=== PATIENT | male | born 1950 | race African-American/Black ===

== ENCOUNTER 2017-01-17 15:04 | Emergency (ER) | payer MEDICAID ==
[~2017-01-17] VITALS: Ht 188 cm; Wt 101.6 kg
[2017-01-17] MEDS ORDERED: POTASSIUM99 M3 PO (15:27)
[2017-01-17] MEDS ORDERED: FUROSEMIDE20 M1 ORAL (15:27)
[2017-01-17 15:35] VITALS: BP 189/90
--- NOTE | 2017-01-17 16:08 | Emergency Room Report ---
History of Present Illness General Chief Complaint: Abdominal Pain Source: Patient, Medical Record Present Illness HPI Patient is a 66-year-old male who presented after increased abdominal pain and vomiting. The patient reported having some episodes difficulty breathing. He reports having a prior history of renal disease as well as diabetes. 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 Allergies: Coded Allergies: No Known Allergies (Unverified , 01/17/17) Patient History Reviewed Nursing Documentation: PMH: Agreed, PSxH: Agreed Nursing Documentation-PMH Past Medical History: No History, Except For Hx Hypertension: Yes Hx Diabetes: Yes Review of Systems All Other Systems: negative except mentioned in HPI Physical Exam Vital Signs Date Time Temp Pulse Resp B/P Pulse Ox O2 Delivery O2 Flow Rate FiO2 01/17/17 15:23 98.2 97 16 189/90 96 Room Air Sp02 EP Interpretation: reviewed, normal General Appearance: thin, other - temporal wasting, Chronically Ill Head: atraumatic Eyes: bilateral eye conjunctivae pale ENT: normal pharynx Neck: normal inspection, full range of motion, supple Respiratory: crackles, other - decreased breath sounds left side Cardiovascular #1: regular rate, rhythm, edema Gastrointestinal: normal inspection, normal bowel sounds, non tender Genitourinary: no CVA tenderness Musculoskeletal: normal inspection, back normal Neurologic: normal inspection, alert, oriented x3, responsive, well head pumper III-XII nml as tested Psychiatric: normal inspection, judgement/insight normal, mood/affect normal Skin: normal inspection, normal color, no rash Medical Decision Making Diagnostic Impression: Primary Impression: Abdominal pain Additional Impressions: Anemia Renal insufficiency Fluid overload ER Course Patient presented for vomiting. Differential diagnoses included ischemic bowel , appendicitis, perforated viscus, abdominal aortic aneurysm, inferior myocardial infarction, viral gastroenteritis. Because of complexity of patient' s case laboratory testing and imaging studies were ordered. The patient was noted to have some evidence of renal disease. Patient had prior history patient is not currently on dialysis. The BUN and creatinine appears to be elevated. The patient was noted to be markedly anemic with hemoglobin approximately 8.The patient noted have marked elevation of his BUN/ creatinine without evidence hyperkalemia. A chest x-ray showed enlarged heart with vascular congestion consistent with renal disease. The patient was discussed with Dr. Marty Aguilera for transfer to [facility] for further workup of patient's renal insufficiency and possible dialysis access placement Labs Test 01/17/17 16:00 01/17/17 17:00 White Blood Count 8.8 K/UL (4.8-10.8) Red Blood Count 3.99 M/UL (4.70-6.10) Hemoglobin 7.9 G/DL (14.2-18.0) Hematocrit 23.8 % (42.0-52.0) Mean Corpuscular Volume 60 FL (80-99) Mean Corpuscular Hemoglobin 19.7 PG (27.0-31.0) Mean Corpuscular Hemoglobin Concent 33.1 G/DL (32.0-36.0) Red Cell Distribution Width 18.4 % (11.6-14.8) Platelet Count 216 K/UL (150-450) Mean Platelet Volume 5.6 FL (6.5-10.1) Neutrophils (%) (Auto) % (45.0-75.0) Lymphocytes (%) (Auto) % (20.0-45.0) Monocytes (%) (Auto) % (1.0-10.0) Eosinophils (%) (Auto) % (0.0-3.0) Basophils (%) (Auto) % (0.0-2.0) Differential Total Cells Counted 100 Neutrophils % (Manual) 78 % (45-75) Lymphocytes % (Manual) 15 % (20-45) Monocytes % (Manual) 4 % (1-10) Eosinophils % (Manual) 2 % (0-3) Basophils % (Manual) 0 % (0-2) Band Neutrophils 1 % (0-8) Platelet Estimate Adequate Platelet Morphology Normal Hypochromasia 2+ Anisocytosis 2+ Microcytosis 2+ Target Cells 2+ Sodium Level 136 mEQ/L (135-145) Potassium Level 4.5 mEQ/L (3.4-4.9) Chloride Level 98 mEQ/L (98-107) Carbon Dioxide Level 18 mEQ/L (20-30) Anion Gap 20 (5-15) Blood Urea Nitrogen 42 mg/dL (7-23) Creatinine 5.4 mg/dL (0.7-1.2) Estimat Glomerular Filtration Rate 10.7 mL/min (>60) Glucose Level 110 mg/dL (74-106) Calcium Level 9.0 mg/dL (8.6-10.2) Total Bilirubin 0.8 mg/dL (0.0-1.2) Aspartate Amino Transf (AST/SGOT) 13 U/L (5-40) Alanine Aminotransferase (ALT/SGPT) 7 U/L (3-41) Alkaline Phosphatase 107 U/L (40-129) Troponin I < 0.30 ng/mL (<=0.30) Total Protein 7.7 g/dL (6.6-8.7) Albumin 3.8 g/dL (3.5-5.2) Globulin 3.9 g/dL Albumin/Globulin Ratio 0.9 (1.0-2.7) Lipase 63 U/L (< 60) Urine Color Pale yellow Urine Appearance Clear Urine pH 6 (4.5-8.0) Urine Specific [place] 1.010 (1.005-1.035) Urine Protein 4+ (NEGATIVE) Urine Glucose (UA) 1+ (NEGATIVE) Urine Ketones Negative (NEGATIVE) Urine Occult Blood 2+ (NEGATIVE) Urine Nitrite Negative (NEGATIVE) Urine Bilirubin Negative (NEGATIVE) Urine Urobilinogen Normal MG/DL (0.0-1.0) Urine Leukocyte Esterase Negative (NEGATIVE) Urine RBC 2-4 /HPF (0 - 0) Urine WBC 0-2 /HPF (0 - 0) Urine Squamous Epithelial Cells None /LPF (NONE/OCC) Urine Bacteria Few /HPF (NONE) EKG Diagnostic Results Rate: normal Rhythm: NSR ST Segments: other - lateral and inf t wave inversion Chest X-Ray Diagnostic Results EP Interpretation: Yes Findings: no consolidation, no pneumothorax, no acute cardiopulmonary disease Number of Views: 1 Last Vital Signs Date Time Temp Pulse Resp B/P Pulse Ox O2 Delivery O2 Flow Rate FiO2 01/17/17 15:35 16 189/90 96 Room Air 01/17/17 15:23 98.2 97 Status: unchanged Disposition: XFER SHT-TRM HOSP Condition: Serious Israel Pickens January 17, 2017 16:08
[2017-01-17 16:34] LABS: MEAN CORPUSCULAR HEMOGLOBIN 19.7 PG (27.0-31.0); MEAN CORPUSCULAR HGB CONC 33.1 G/DL (32.0-36.0); MEAN CORPUSCULAR VOLUME 60 FL (80-99); MEAN PLATELET VOLUME 5.6 FL (6.5-10.1); PLATELET COUNT 216 K/UL (150-450); RED BLOOD COUNT 3.99 M/UL (4.70-6.10); RED CELL DISTRIBUTION WIDTH 18.4 % (11.6-14.8); WHITE BLOOD COUNT 8.8 K/UL (4.8-10.8)
[2017-01-17 16:44] LABS: ALBUMIN/GLOBULIN RATIO 0.9 (1.0-2.7); CREATININE 5.4 mg/dL (0.7-1.2); GLOMERULAR FILTRATION RATE 10.7 mL/min (>60); POTASSIUM 4.5 mEQ/L (3.4-4.9); TOTAL PROTEIN 7.7 g/dL (6.6-8.7)
[2017-01-17 16:57] LABS: TROPONIN I < 0.30 ng/mL (<=0.30)
[2017-01-17 17:12] LABS: ANISOCYTOSIS 2+; BAND NEUTROPHILS % (MANUAL) 1 % (0-8); BASOPHILS % (MANUAL) 0 % (0-2); EOSINOPHILS % (MANUAL) 2 % (0-3); HYPOCHROMASIA 2+; LYMPHOCYTES % (MANUAL) 15 % (20-45); MICROCYTES 2+; NEUTROPHILS % (MANUAL) 78 % (45-75); PLATELET ESTIMATE ADEQUATE; PLATELET MORPHOLOGY NORMAL; TARGET CELLS 2+; TOTAL CELLS COUNTED 100
[2017-01-17 17:44] LABS: APPEARANCE,URINE CLEAR; KETONES,URINE NEGATIVE (NEGATIVE); LEUKOCYTE ESTERASE ,URINE NEGATIVE (NEGATIVE); NITRITE,URINE NEGATIVE (NEGATIVE); PH,URINE 6 (4.5-8.0); PROTEIN,URINE 4+ (NEGATIVE); UROBILINOGEN,URINE NORMAL MG/DL (0.0-1.0)
[2017-01-17 17:55] LABS: BACTERIA,URINE FEW /HPF; WBC,URINE 0-2 /HPF (0 - 0)
[2017-01-17 19:24] VITALS: BP 146/89
[2017-01-17] MEDS ORDERED: BENAZEPRIL HCL10 MG ORAL (19:43)
[2017-01-17] MEDS ORDERED: FOLIC ACID1 MG ORAL (19:44)
[2017-01-17] MEDS ORDERED: CARVEDILOL12.5 MG ORAL (19:45)
[2017-01-17] MEDS ORDERED: FUROSEMIDE80 M1 ORAL (19:46)
[2017-01-17] MEDS ORDERED: ISOSORBIDE MON120 M1 PO (19:48)
[2017-01-17] MEDS ORDERED: BICITRA30 ML PO (19:49)
[2017-01-17] MEDS ORDERED: FERROUS GLUCON324 M1 PO (19:50)
[2017-01-17] MEDS ORDERED: HYDRALAZINE HC100 MG ORAL (19:51)
[2017-01-17] MEDS ORDERED: ADALAT20 MG ORAL (19:52)
[2017-01-17] MEDS ORDERED: PANTOPRAZOLE SO40 MG ORAL (19:53)
[2017-01-17] MEDS ORDERED: ASPIRIN EC81 MG ORAL (19:54)
[2017-01-17] MEDS ORDERED: GLIPIZIDE10 MG PO (19:55)
[2017-01-17] MEDS ORDERED: ATORVASTATIN CA40 MG ORAL (19:56)
[2017-01-17] MEDS ORDERED: MULTIVITAMINS1 EAC2 ORAL (19:59)
[2017-01-17 21:00] VITALS: BP 151/82
[2017-01-17 21:10] VITALS: BP 142/79
--- NOTE | 2017-01-18 10:37 | Diagnostic Imaging Report ---
Indication: Dyspnea Comparison: None A single view chest radiograph was obtained. Findings: There is enlargement of the cardiac silhouette with pulmonary vascular redistribution and prominence, hazy vessel margins and the suggestion of interstitial edema consistent with CHF. Bones are unremarkable. Impression: Congestive heart failure suspected.
== END 2017-01-17 21:10 | disposition short-term general hospital (02) ==
LOC: EMR 17:02
DX: R10.9 Unspecified abdominal pain (principal); D64.9 Anemia, unspecified; N28.9 Disorder of kidney and ureter, unspecified; E87.70 Fluid overload, unspecified; I10 Essential (primary) hypertension; E11.9 Type 2 diabetes mellitus without complications; R11.10 Vomiting, unspecified
CPT/HCPCS: 36415; 71010; 80053; 81003; 83690; 84484; 85007; 85025; 86850; 86900; 86901; 93005; 96374; 99285; J2405

== ENCOUNTER 2020-02-24 17:37 | Inpatient (IN) | payer MEDICARE, MEDICAID ==
[~2020-02-24] VITALS: Ht 182.9 cm; Wt 89.4 kg
[~2020-02-24 17:37] MED LIST: ADALAT20 MG ORAL; ASPIRIN EC81 MG ORAL; ATORVASTATIN CA40 MG ORAL; BENAZEPRIL HCL10 MG ORAL; BICITRA30 ML PO; CARVEDILOL12.5 MG ORAL; FERROUS GLUCON324 M1 PO; FOLIC ACID1 MG ORAL; FUROSEMIDE20 M1 ORAL; FUROSEMIDE80 M1 ORAL; GLIPIZIDE10 MG PO; HYDRALAZINE HC100 MG ORAL; ISOSORBIDE MON120 M1 PO; MULTIVITAMINS1 EAC2 ORAL; PANTOPRAZOLE SO40 MG ORAL; POTASSIUM99 M3 PO
[2020-02-24 17:54] VITALS: BP 201/90
[2020-02-24] MEDS ORDERED: PROSCAR5 MG ORAL (17:56)
[2020-02-24] MEDS ORDERED: FLOMAX0.4 MG ORAL (17:56)
--- NOTE | 2020-02-24 18:04 | Emergency Room Report ---
History of Present Illness General Chief Complaint: Abdominal Pain Source: Patient Present Illness HPI Patient presents with complaints of increased nausea vomiting Reports that he has missed several episodes of dialysis Patient also reports multiple recent hospitalizations Denies any chest pain denies any history patient also feels that he is more distended in the abdominal region than usual Patient has dialysis on the left AV shunt Allergies: Coded Allergies: No Known Allergies (Unverified , 01/17/17) COVID-19 Screening Contact w/high risk pt: No Recent Travel to affected area: No Experienced COVID-19 symptoms?: No COVID-19 Testing performed PROCESS CONTROL MANAGER: No Patient History Past Medical History: see triage record Reviewed Nursing Documentation: PMH: Agreed; PSxH: Agreed Nursing Documentation-PMH Past Medical History: No History, Except For Hx Hypertension: Yes Hx Diabetes: Yes Hx Dialysis: Yes - Tues/Thurs/Sat Review of Systems All Other Systems: negative except mentioned in HPI Physical Exam Vital Signs Date Time Temp Pulse Resp B/P (MAP) Pulse Ox O2 Delivery O2 Flow Rate FiO2 02/24/20 17:46 97.5 78 20 193/82 (119) 100 Room Air Sp02 EP Interpretation: reviewed, normal General Appearance: no apparent distress Head: normocephalic, atraumatic Eyes: bilateral eye PERRL, bilateral eye EOMI ENT: hearing grossly normal, EOM grossly intact Neck: supple Respiratory: no respiratory distress, no retraction, no accessory muscle use, crackles - Both lower lobes Cardiovascular #1: regular rate, rhythm Gastrointestinal: non tender - However appears mildly distended Musculoskeletal: normal inspection, other - AV shunt left upper arm Neurologic: alert, oriented x3 Psychiatric: normal inspection Skin: no rash Lymphatic: no adenopathy Medical Decision Making Diagnostic Impression: Primary Impression: Renal failure Additional Impression: Anemia ER Course Patient is a fairly complex patient with multiple differential to consideration including but not limited to cardiac cardiopulmonary and vascular emergencies patient has also missed several dialysis sessions and there is concern for Renal problems including abnormal electrolytes Patient's hemoglobin comes back low at 6.0 he does have renal disease Potassium is normal however getting elevated kidney function shows renal failure Patient's lipase is also elevated and patient admitted for further care Labs Test 02/24/20 18:00 White Blood Count 7.9 K/UL (4.8-10.8) Red Blood Count 2.79 M/UL (4.70-6.10) Hemoglobin 6.0 G/DL (14.2-18.0) Hematocrit 18.5 % (42.0-52.0) Mean Corpuscular Volume 66 FL (80-99) Mean Corpuscular Hemoglobin 21.6 PG (27.0-31.0) Mean Corpuscular Hemoglobin Concent 32.5 G/DL (32.0-36.0) Red Cell Distribution Width 17.4 % (11.6-14.8) Platelet Count 108 K/UL (150-450) Mean Platelet Volume 6.0 FL (6.5-10.1) Neutrophils (%) (Auto) % (45.0-75.0) Lymphocytes (%) (Auto) % (20.0-45.0) Monocytes (%) (Auto) % (1.0-10.0) Eosinophils (%) (Auto) % (0.0-3.0) Basophils (%) (Auto) % (0.0-2.0) Prothrombin Time 12.3 SEC (9.30-11.50) Prothromb Time International Ratio 1.1 (0.9-1.1) Activated Partial Thromboplast Time 30 SEC (23-33) Sodium Level 137 MMOL/L (136-145) Potassium Level 5.0 MMOL/L (3.5-5.1) Chloride Level 101 MMOL/L (98-107) Carbon Dioxide Level 15 MMOL/L (21-32) Anion Gap 21 mmol/L (5-15) Blood Urea Nitrogen 135 mg/dL (7-18) Creatinine 19.5 MG/DL (0.55-1.30) Estimat Glomerular Filtration Rate 2.9 mL/min (>60) Glucose Level 105 MG/DL (74-106) Calcium Level 7.7 MG/DL (8.5-10.1) Total Bilirubin 0.7 MG/DL (0.2-1.0) Aspartate Amino Transf (AST/SGOT) 11 U/L (15-37) Alanine Aminotransferase (ALT/SGPT) 20 U/L (12-78) Alkaline Phosphatase 142 U/L (46-116) Troponin I 0.026 ng/mL (0.000-0.056) Total Protein 8.2 G/DL (6.4-8.2) Albumin 3.9 G/DL (3.4-5.0) Globulin 4.3 g/dL Albumin/Globulin Ratio 0.9 (1.0-2.7) Lipase 773 U/L (73-393) Rhythm Strip Diag. Results EP Interpretation: yes Rate: 77 Rhythm: NSR, no PVC's, no ectopy Chest X-Ray Diagnostic Results Chest X-Ray Diagnostic Results : Chest X-Ray Ordered: Yes # of Views/Limited/Complete: 1 View Indication: Chest Pain EP Interpretation: Yes Interpretation: no consolidation, no effusion, no pneumothorax Impression: No acute disease Electronically Signed by: Kaela Mary DO Last Vital Signs Date Time Temp Pulse Resp B/P (MAP) Pulse Ox O2 Delivery O2 Flow Rate FiO2 02/24/20 17:46 97.5 78 20 193/82 (119) 100 Room Air Status: improved Disposition: ADMITTED INPATIENT Condition: Serious Kaela Mary DO Feb 24, 2020 18:04
[2020-02-24 18:12] LABS: HEMATOCRIT 18.5 % (42.0-52.0); MEAN CORPUSCULAR VOLUME 66 FL (80-99); PLATELET COUNT 108 K/UL (150-450); RED BLOOD COUNT 2.79 M/UL (4.70-6.10); RED CELL DISTRIBUTION WIDTH 17.4 % (11.6-14.8); WHITE BLOOD COUNT 7.9 K/UL (4.8-10.8)
[2020-02-24 18:22] LABS: ANION GAP 21 mmol/L (5-15); BLOOD UREA NITROGEN 135 mg/dL (7-18); CALCIUM 7.7 MG/DL (8.5-10.1); CARBON DIOXIDE 15 MMOL/L (21-32); CHLORIDE 101 MMOL/L (98-107); CREATININE 19.5 MG/DL (0.55-1.30); SODIUM 137 MMOL/L (136-145)
[2020-02-24 18:23] LABS: INR 1.1 (0.9-1.1)
[2020-02-24 18:26] LABS: ALANINE AMINOTRANSFERASE 20 U/L (12-78); ALBUMIN 3.9 G/DL (3.4-5.0); ALBUMIN/GLOBULIN RATIO 0.9 (1.0-2.7); ALKALINE PHOSPHATASE 142 U/L (46-116); ASPARTATE AMINO TRANSFERASE 11 U/L (15-37); BILIRUBIN,TOTAL 0.7 MG/DL (0.2-1.0)
--- NOTE | 2020-02-24 19:14 | Diagnostic Imaging Report ---
EXAM: XR Chest, 1 View CLINICAL HISTORY: CP TECHNIQUE: Frontal view of the chest. COMPARISON: Chest x-ray from 01/17/2017 is unavailable for comparison as the image is not transmitting. FINDINGS: Lungs: Unremarkable. No consolidation. Pleural space: Unremarkable. No pneumothorax. Heart: Unremarkable. Borderline cardiomegaly. Mediastinum: Unremarkable. Bones/joints: Unremarkable. IMPRESSION: No acute cardiopulmonary disease.
[2020-02-24 19:45] VITALS: BP 195/76
[2020-02-24 20:15] VITALS: BP 175/70
[2020-02-24 21:00] VITALS: BP 168/66
[2020-02-24 22:45] VITALS: BP 179/79
[2020-02-25] MEDS ORDERED: Morphine Sulfate 4mg/ml Inj (IV USE ONLY) ONE (00:44)
[2020-02-25] MEDS ORDERED: Morphine Sulfate 4mg/ml Inj (IV USE ONLY) IVP ONE (00:45)
[2020-02-25 01:30] VITALS: BP 184/79
[2020-02-25] MEDS: NIFEdipine 10mg cap ORAL SCH ×4 (06:00→21:51)
[2020-02-25] MEDS: HydrALAZINE 50mg tab ORAL SCH ×4 (06:00→21:52)
[2020-02-25 06:30] LABS: HEMATOCRIT 19.7 % (42.0-52.0); MEAN CORPUSCULAR VOLUME 67 FL (80-99); PLATELET COUNT 100 K/UL (150-450); RED BLOOD COUNT 2.96 M/UL (4.70-6.10); RED CELL DISTRIBUTION WIDTH 18.7 % (11.6-14.8); WHITE BLOOD COUNT 7.4 K/UL (4.8-10.8)
[2020-02-25] MEDS: GlipiZIDE 5mg tab ORAL SCH ×2 (06:30→19:10)
[2020-02-25] MEDS: NovoLOG Insulin Flexpen SUBQ SCH ×4 (06:30→21:00)
[2020-02-25] MEDS: Sodium Citrate 30ml ORAL SCH ×2 (09:00→19:12)
[2020-02-25] MEDS: Heparin 5000 units/ml inj SUBQ SCH ×2 (09:00→21:00)
[2020-02-25] MEDS ORDERED: Furosemide 40mg tab ONE (09:09)
[2020-02-25] MEDS: Benazepril 10mg tab ORAL SCH (09:11)
[2020-02-25] MEDS: Furosemide 80mg tab ORAL SCH ×2 (09:12→21:00)
[2020-02-25] MEDS: Tamsulosin 0.4mg cap ORAL SCH (09:14)
[2020-02-25 09:26] VITALS: BP 186/77
[2020-02-25] MEDS: Imdur 30mg tab ORAL SCH (10:02)
[2020-02-25] MEDS: Carvedilol 12.5mg tab ORAL SCH ×2 (10:02→21:00)
[2020-02-25 10:28] VITALS: BP 177/74
[2020-02-25 11:42] VITALS: BP 167/68
--- NOTE | 2020-02-25 12:15 | History and Physical Report ---
DATE OF ADMISSION: 02/24/2020 CHIEF COMPLAINT: Anemia and shortness of breath. HISTORY OF PRESENT ILLNESS: The patient is a 69-year-old male. He has a history of end-stage renal disease, hypertension, diabetes, and BPH, who presented with complaints of feeling weak, tired, and short of breath. He had not gone to dialysis for nearly 2 weeks. He also admits to having some blood in his stool and having an episode of hematemesis here in the ER. On evaluation here, his white count was 8, hemoglobin was 6. Sodium was 137. He had a BUN of 135 and creatinine of 20. He is now admitted for further evaluation and care. PAST MEDICAL HISTORY: As above. PAST SURGICAL HISTORY: Includes a left upper extremity AV fistula. CURRENT MEDICATIONS: Reconciled and reviewed. ALLERGIES: None. FAMILY HISTORY: None. SOCIAL HISTORY: Negative for tobacco, ethanol, or drugs. REVIEW OF SYSTEMS: GENERAL: No fever or chills. Positive malaise and weakness. HEENT: No headaches or visual changes. CARDIOPULMONARY: No chest pain. No shortness of breath. GASTROINTESTINAL: Positive hematemesis. Questionable bright red blood per rectum. GENITOURINARY: No urgency or frequency. MUSCULOSKELETAL: No joint pain or swelling. NEUROLOGICAL: No history of seizures. SKIN: No rash. LABORATORY DATA: White count was 8, hemoglobin 6, hematocrit 18, platelet count of 108,000. Coags are normal. BUN was 135, creatinine 20. Chest x-ray was clear. ASSESSMENT: This is a 69-year-old male with a history of end-stage renal disease, hypertension, and diabetes, admitted with complaints of azotemia secondary to missed dialysis. He also may have a possible GI bleed. He is hypertensive and diabetic. PLAN: 1. Transfuse packed red blood cells. 2. IV proton pump inhibitor. 3. GI consultation. 4. Renal consultation for hemodialysis. 5. The patient is currently guarded. Sahil Dixon M.D. DR: PAIGE JOB#: [id number] CC:
[2020-02-25 16:00] VITALS: BP 94/67
[2020-02-25 20:00] VITALS: BP 177/60
--- NOTE | 2020-02-25 20:46 | General Progress Note ---
Assessment/Plan Assessment/Plan: Assessment - Cirrhosis, ? etiology - Ascites - ESRD / HD - N/V, Diarrhea - small volume Hematemesis, BRBPR - Anemia Recommendations - RBC transfusion - IV Fe - Paracentesis - IV PPI - Cirrhosis serologic w/u - check AFP - Liver imaging - stool cultures / C Diff - eventual EGD / Colon Thank you Merna Serrano MD Subjective Allergies: Coded Allergies: No Known Allergies (Unverified , 01/17/17) Objective Last 24 Hour Vital Signs Date Time Temp Pulse Resp B/P (MAP) Pulse Ox O2 Delivery O2 Flow Rate FiO2 02/25/20 20:13 167/70 02/25/20 16:00 97.5 88 20 94/67 (76) 100 02/25/20 13:16 Room Air 02/25/20 12:10 98.3 81 21 167/68 99 Room Air 02/25/20 11:42 81 21 167/68 99 Room Air 02/25/20 10:28 70 21 177/74 99 Room Air 02/25/20 10:02 186/77 02/25/20 10:02 86 186/77 02/25/20 09:26 98.3 86 21 186/77 98 Room Air 02/25/20 09:11 184/79 02/25/20 08:38 184/79 02/25/20 08:37 90 184/79 02/25/20 01:30 98.3 90 16 184/79 100 Room Air 02/25/20 01:25 98.3 02/24/20 23:45 98.3 93 16 02/24/20 22:45 98.3 90 16 179/79 100 Room Air 02/24/20 22:45 98.3 90 16 02/24/20 21:10 98.3 77 16 02/24/20 21:00 98.1 79 18 168/66 100 Room Air Intake and Output 02/24/20 02/25/20 19:00 07:00 Intake Total 500 ml Balance 500 ml Intake Blood Product 500 ml # Bowel Movements 2 Laboratory Tests 02/25/20 06:00: White Blood Count 7.4, Red Blood Count 2.96L, Hemoglobin 7.0L, Hematocrit 19.7L , Mean Corpuscular Volume 67L, Mean Corpuscular Hemoglobin 23.6L, Mean Corpuscular Hemoglobin Concent 35.5, Red Cell Distribution Width 18.7H, Platelet Count 100L, Mean Platelet Volume 4.9L, Neutrophils (%) (Auto) , Lymphocytes (%) (Auto) , Monocytes (%) (Auto) , Eosinophils (%) (Auto) , Basophils (%) (Auto) , Differential Total Cells Counted 100, Neutrophils % ( Manual) 82H, Lymphocytes % (Manual) 13L, Monocytes % (Manual) 4, Eosinophils % ( Manual) 1, Basophils % (Manual) 0, Band Neutrophils 0, Platelet Estimate DecreasedL, Platelet Morphology Normal, Hypochromasia 1+, Anisocytosis 1+, Microcytosis 2+, Iron Level 58, Hepatitis B Surface Antigen [Pending] Height (Feet): 6 Height (Inches): 2.00 Weight (Pounds): 198 Merna Serrano MD Feb 25, 2020 20:46
[2020-02-25] MEDS ORDERED: Atorvastatin 20mg tab ORAL SCH (21:00)
[2020-02-25] MEDS: Epoetin Alfa-EPBX(ESRD on dialysis)3000 units/ml vial SUBQ SCH (21:00)
[2020-02-25] MEDS ORDERED: Heparin Sod 1000 units/ml 10ml IV PRN ×2 (21:15)
[2020-02-26] VITALS (7 sets, daily range): BP systolic 123–185; BP diastolic 61–84
--- NOTE | 2020-02-26 00:30 | Consultation ---
DATE OF CONSULTATION: 02/25/2020 NEPHROLOGY CONSULTATION CONSULTING PHYSICIAN: Kirby Pizarro MD REASON FOR CONSULTATION: Azotemia and end-stage renal disease. HISTORY OF PRESENT ILLNESS: The patient is a 69-year-old man who has been on dialysis for about 4 years and missed dialysis for about two weeks. He states he just does not feel good. There is some hematemesis and possible rectal bleeding. He is severely azotemic. There is a history of hypertension and diabetes. ALLERGIES: None known. SURGERIES: AV fistula in the left arm. HOME MEDICATIONS: On the chart includes aspirin, atorvastatin, benazepril, carvedilol, ferrous gluconate, Proscar, folic acid, furosemide, glipizide, hydralazine, isosorbide, multivitamins, nifedipine, Protonix, sodium citrate, and tamsulosin. It is unclear if these are accurate. SYSTEM REVIEW: HEAD, EYES, EARS, NOSE, AND THROAT: Vision and hearing is good. ENDOCRINE: The patient states he has diabetes, took insulin in the past. CARDIAC: Denies angina or [place], history of hypertension. GASTROINTESTINAL: See history of present illness. No abdominal pain. GENITOURINARY: History of BPH. No dysuria. NEUROLOGIC: No CVA or seizures. PHYSICAL EXAMINATION: GENERAL: The patient is lying in bed, somewhat sleepy, but responsive. VITAL SIGNS: Temperature 98.3, pulse 81, respiratory rate 21, blood pressure 167/68. HEAD, EYES, EARS, NOSE, AND THROAT: Sclerae are nonicteric. Ocular motions intact in all directions. Oral mucosa is moist. NECK: No adenopathy. LUNGS: Clear. HEART: Regular rhythm. No murmur. ABDOMEN: Soft without organomegaly. EXTREMITIES: No edema cyanosis or clubbing. There is an AV fistula in the left arm. NEUROLOGIC: He is alert and responsive. Cranial nerves are intact. He moves all extremities. he has uremic fetor to his breath. LABORATORY DATA: Pertinent labs show sodium 137, potassium 5, BUN 135, creatinine 19.5, troponin 0.026, white count 7.4, hemoglobin is 7. Stool occult blood positive. IMPRESSION: 1. End-stage renal disease. 2. Missed dialysis. 3. History of hep C 4. Anemia of chronic kidney disease. 5. Heme-positive stools. 6. Hematemesis and hematochezia. PLAN: The patient will get serial dialysis. We will place him on Epogen. Check his iron stores, watch closely in view of his comorbidities. Kirby Pizarro M.D. DR: Apryl JOB#: [id number] CC:
--- NOTE | 2020-02-26 02:30 | Consultation ---
DATE OF CONSULTATION: 02/25/2020 CHIEF COMPLAINT: I was asked to see patient by Dr. Sahil Dixon for evaluation of nausea, vomiting, and cirrhosis. HISTORY OF PRESENT ILLNESS: The patient is a 69-year-old man who is new to this hospital. He has end-stage renal disease on hemodialysis, although, he apparently missed his dialysis for several sessions. He also states that he has been diagnosed with cirrhosis about a month ago and he has had 2 to 3 paracentesis at outside Hospital. He also has had nausea and vomiting for about a day and the diarrhea for about four days. He states he has been retching several times with small amount of blood in the emesis. He has not had endoscopy or colonoscopy in the past. He denies pyrosis, but he does have some occasional small amount of blood in his stools. He is not on any medications for his cirrhosis nor does he know the cause of his cirrhosis. He does not drink alcohol. PAST MEDICAL HISTORY: History of end-stage renal disease on hemodialysis, cirrhosis, ascites, status post the left upper extremity AV fistula. ALLERGIES: None. FAMILY HISTORY: Noncontributory. SOCIAL HISTORY: The patient does not smoke or drink alcohol. He is single. He has 8 children. MEDICATIONS: Nifedipine, finasteride, Flomax. REVIEW OF SYSTEMS: Otherwise negative. PHYSICAL EXAMINATION: GENERAL: Elderly man seen in the emergency room. HEENT: Normocephalic and atraumatic. Sclerae anicteric. Oropharynx clear. NECK: Supple. CHEST: Clear to auscultation. CARDIOVASCULAR: Revealed a regular rate. ABDOMEN: Distended. There is a fluid wave suggestive of ascites. EXTREMITIES: Revealed no edema. LABORATORY DATA: Noted. ASSESSMENT: This patient presents with several gastrointestinal issues. The most important is advanced liver disease with ascites although the cause is not apparent to me or to the patient. The patient should have ascites evaluation for this. In addition, the his abdomen is large and there appears to be nausea, vomiting, diarrhea, typical viral gastroenteritis could be the etiology. However, I would check his stools for usual pathogens. He should be placed on proton pump inhibitor He should receive blood and iron infusions to help restore his volume of blood. He should undergo an eventual endoscopy and colonoscopy once all has been clarified. RECOMMENDATIONS: Per above discussion and per orders in the chart. Thank you for asking me to participate in the care of this patient. Merna Serrano M.D. DR: Rosa Elena JOB#: [id number] CC: ERIK
[2020-02-26] MEDS ORDERED: Heparin Sod 1000 units/ml 10ml IV PRN (06:00)
[2020-02-26] MEDS: NovoLOG Insulin Flexpen SUBQ SCH ×4 (06:23→21:00)
[2020-02-26] MEDS: GlipiZIDE 5mg tab ORAL SCH ×2 (06:23→16:30)
[2020-02-26] MEDS: HydrALAZINE 50mg tab ORAL SCH ×3 (06:23→22:22)
[2020-02-26] MEDS: NIFEdipine 10mg cap ORAL SCH ×3 (06:23→22:22)
[2020-02-26 07:18] LABS: HEMATOCRIT 21.3 % (42.0-52.0); HEMOGLOBIN 7.4 G/DL (14.2-18.0); MEAN CORPUSCULAR VOLUME 66 FL (80-99); PLATELET COUNT 89 K/UL (150-450); RED BLOOD COUNT 3.21 M/UL (4.70-6.10); RED CELL DISTRIBUTION WIDTH 18.1 % (11.6-14.8); WHITE BLOOD COUNT 5.1 K/UL (4.8-10.8)
[2020-02-26 07:51] LABS: % IRON SATURATION 30 % (15-50); IRON 58 ug/dL (50-175); TOTAL IRON BINDING CAPACITY 191 ug/dL (250-450)
[2020-02-26 08:17] LABS: ANION GAP 18 mmol/L (5-15); BLOOD UREA NITROGEN 95 mg/dL (7-18); CALCIUM 7.8 MG/DL (8.5-10.1); CARBON DIOXIDE 22 MMOL/L (21-32); CHLORIDE 105 MMOL/L (98-107); CREATININE 13.7 MG/DL (0.55-1.30); FERRITIN 1107 NG/ML (8-388); PHOSPHORUS 4.6 MG/DL (2.5-4.9); POTASSIUM 3.8 MMOL/L (3.5-5.1); SODIUM 145 MMOL/L (136-145)
--- NOTE | 2020-02-26 08:52 | General Progress Note ---
Assessment/Plan Problem List: (1) Anemia ICD Codes: D64.9 - Anemia, unspecified SNOMED: 345572911 (2) Renal failure ICD Codes: N19 - Unspecified kidney failure SNOMED: 50745688 (3) GIB (gastrointestinal bleeding) ICD Codes: K92.2 - Gastrointestinal hemorrhage, unspecified SNOMED: 21524920 (4) HTN (hypertension) ICD Codes: I10 - Essential (primary) hypertension SNOMED: 61005679 Status: stable Assessment/Plan: HD per renal titrate bp rx transfuse prn paracentesis thyroid replacement echo antiemetics Subjective ROS Limited/Unobtainable: No Constitutional: Reports: malaise, weakness HEENT: Reports: no symptoms Cardiovascular: Reports: no symptoms Respiratory: Reports: no symptoms Gastrointestinal/Abdominal: Reports: blood in stool, vomiting Genitourinary: Reports: no symptoms Neurologic/Psychiatric: Reports: no symptoms Endocrine: Reports: no symptoms Hematologic/Lymphatic: Reports: anemia Allergies: Coded Allergies: No Known Allergies (Unverified , 01/17/17) All Systems: reviewed and negative except above Subjective vomiting. no melena or brbpr. s/p transfusion. no fever or chills. HD due today. no chest pain. gi and renal noted Objective Last 24 Hour Vital Signs Date Time Temp Pulse Resp B/P (MAP) Pulse Ox O2 Delivery O2 Flow Rate FiO2 02/26/20 06:23 65 152/64 02/26/20 06:23 152/64 02/26/20 04:00 97.0 65 20 152/64 (93) 97 02/26/20 04:00 68 02/26/20 02:24 Room Air 02/26/20 00:00 75 02/26/20 00:00 98.0 65 20 123/61 (81) 96 02/25/20 21:52 177/60 02/25/20 21:51 75 177/60 02/25/20 21:00 Room Air 02/25/20 21:00 75 177/60 02/25/20 20:13 167/70 02/25/20 20:00 75 02/25/20 20:00 98.8 78 20 177/60 (99) 97 02/25/20 16:00 97.5 88 20 94/67 (76) 100 02/25/20 13:16 Room Air 02/25/20 12:10 98.3 81 21 167/68 99 Room Air 02/25/20 11:42 81 21 167/68 99 Room Air 02/25/20 10:28 70 21 177/74 99 Room Air 02/25/20 10:02 186/77 02/25/20 10:02 86 186/77 02/25/20 09:26 98.3 86 21 186/77 98 Room Air 02/25/20 09:11 184/79 Intake and Output 02/25/20 02/26/20 19:00 07:00 # Voids 1 # Bowel Movements 4 Laboratory Tests 02/26/20 05:43: White Blood Count 5.1, Red Blood Count 3.21L, Hemoglobin 7.4L, Hematocrit 21.3L , Mean Corpuscular Volume 66L, Mean Corpuscular Hemoglobin 23.2L, Mean Corpuscular Hemoglobin Concent 34.9, Red Cell Distribution Width 18.1H, Platelet Count 89L, Mean Platelet Volume 5.4L, Neutrophils (%) (Auto) , Lymphocytes (%) (Auto) , Monocytes (%) (Auto) , Eosinophils (%) (Auto) , Basophils (%) (Auto) , Neutrophils % (Manual) [Pending], Lymphocytes % (Manual) [Pending], Platelet Estimate [Pending], Platelet Morphology [Pending], Sodium Level 145, Potassium Level 3.8, Chloride Level 105, Carbon Dioxide Level 22, Anion Gap 18H, Blood Urea Nitrogen 95H, Creatinine 13.7H, Estimat Glomerular Filtration Rate 4.4, Glucose Level 57L, Calcium Level 7.8L, Phosphorus Level 4.6 , Iron Level 58, Total Iron Binding Capacity 191L, Percent Iron Saturation 30, Unsaturated Iron Binding 133, Ferritin 1107H, Ammonia 32, Alpha Fetoprotein [ Pending], Thyroid Stimulating Hormone (TSH) 9.386H, Anti-Nuclear Antibody Screen [Pending], SmRNP Antibodies [Pending], Anti-Double Strand DNA Antibody [ Pending], F-Actin IgG Antibody [Pending], Hepatitis C Antibody [Pending] Height (Feet): 6 Height (Inches): 2.00 Weight (Pounds): 198 General Appearance: WD/WN, alert Neck: supple Cardiovascular: regular rhythm Respiratory/Chest: lungs clear Abdomen: normal bowel sounds, non tender, soft, no organomegaly Edema: no edema noted Arm (L), no edema noted Arm (R), no edema noted Leg (L), no edema noted Leg (R), no edema noted Pedal (L), no edema noted Pedal (R), no edema noted 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
[2020-02-26] MEDS: Sodium Citrate 30ml ORAL SCH ×2 (08:53→17:18)
[2020-02-26] MEDS: Carvedilol 12.5mg tab ORAL SCH ×3 (08:53→22:20)
[2020-02-26] MEDS: Tamsulosin 0.4mg cap ORAL SCH (08:54)
[2020-02-26] MEDS: Imdur 30mg tab ORAL SCH (08:54)
[2020-02-26] MEDS: Furosemide 80mg tab ORAL SCH ×2 (08:54→22:21)
[2020-02-26] MEDS: Heparin 5000 units/ml inj SUBQ SCH ×2 (08:55→21:00)
[2020-02-26] MEDS: Benazepril 10mg tab ORAL SCH (08:55)
--- NOTE | 2020-02-26 11:44 | CDS Physician Query ---
Clarification is required for compliance, coding accuracy, and to reflect severity of illness for this patient Dear Dr. Serrano, Date: 02.26.20 CDS: Francis Pineda Please clarify the specific type of anemia below: 02/23- Hgb-6.0L Hct 18.5L/ patient transfused RBC on 02/24/20. Acuity [ ]Acute [ x]Acute on Chronic [ ]Chronic Etiology [ x] Blood loss [ ] ESRD [ ] Neoplastic disease [ ] Iron deficiency [ ] GI Bleeding [ ] Anemia of chronic disease [ ] Dilutional [ ] Postoperative [ ] Unable to determine [ ] Other: Present on Admission: [ x] Yes [ ] No [ ] Clinically Undetermined _Tereza Serrano ____02/27/20 Physician signature Date Please also document in your Progress Notes and/or Discharge Summary and indicate if the condition was present on admission. ROSHAND
--- NOTE | 2020-02-26 20:54 | Nephrology Progress Note ---
Assessment/Plan Problem List: (1) Missed dialysis (2) End-stage kidney disease (3) HTN (hypertension) (4) GIB (gastrointestinal bleeding) (5) Anemia Plan continue with HD 02/24 and 02/25, GI evaluating Subjective Constitutional: Reports: weakness HEENT: Reports: no symptoms Genitourinary: Reports: no symptoms Neurologic/Psychiatric: Reports: no symptoms Objective Objective Last 24 Hour Vital Signs Date Time Temp Pulse Resp B/P (MAP) Pulse Ox O2 Delivery O2 Flow Rate FiO2 02/26/20 16:00 69 02/26/20 16:00 97.5 71 20 156/78 (104) 98 02/26/20 13:40 72 138/66 02/26/20 13:40 138/66 02/26/20 12:00 97.7 72 18 138/66 (90) 97 02/26/20 12:00 72 02/26/20 09:00 Room Air 02/26/20 08:55 138/68 02/26/20 08:54 138/68 02/26/20 08:53 68 138/68 02/26/20 08:00 70 02/26/20 08:00 97.7 68 18 138/68 (91) 98 02/26/20 06:23 65 152/64 02/26/20 06:23 152/64 02/26/20 04:00 97.0 65 20 152/64 (93) 97 02/26/20 04:00 68 02/26/20 02:24 Room Air 02/26/20 00:00 75 02/26/20 00:00 98.0 65 20 123/61 (81) 96 02/25/20 21:52 177/60 02/25/20 21:51 75 177/60 02/25/20 21:00 Room Air 02/25/20 21:00 75 177/60 Intake and Output 02/25/20 02/26/20 19:00 07:00 Output Total 3000 ml Balance -3000 ml Hemodialysis UF 3000 ml # Voids 1 # Bowel Movements 4 Laboratory Tests 02/26/20 05:43: White Blood Count 5.1, Red Blood Count 3.21L, Hemoglobin 7.4L, Hematocrit 21.3L , Mean Corpuscular Volume 66L, Mean Corpuscular Hemoglobin 23.2L, Mean Corpuscular Hemoglobin Concent 34.9, Red Cell Distribution Width 18.1H, Platelet Count 89L, Mean Platelet Volume 5.4L, Neutrophils (%) (Auto) , Lymphocytes (%) (Auto) , Monocytes (%) (Auto) , Eosinophils (%) (Auto) , Basophils (%) (Auto) , Differential Total Cells Counted 100, Neutrophils % ( Manual) 79H, Lymphocytes % (Manual) 16L, Monocytes % (Manual) 4, Eosinophils % ( Manual) 1, Basophils % (Manual) 0, Band Neutrophils 0, Platelet Estimate DecreasedL, Platelet Morphology Normal, Hypochromasia 1+, Anisocytosis 1+, Microcytosis 2+, Sodium Level 145, Potassium Level 3.8, Chloride Level 105, Carbon Dioxide Level 22, Anion Gap 18H, Blood Urea Nitrogen 95H, Creatinine 13.7H, Estimat Glomerular Filtration Rate 4.4, Glucose Level 57L, Calcium Level 7.8L, Phosphorus Level 4.6, Iron Level 58, Total Iron Binding Capacity 191L, Percent Iron Saturation 30, Unsaturated Iron Binding 133, Ferritin 1107H, Ammonia 32, Alpha Fetoprotein [Pending], Thyroid Stimulating Hormone (TSH) 9.386H, Anti-Nuclear Antibody Screen [Pending], SmRNP Antibodies [Pending], Anti -Double Strand DNA Antibody [Pending], F-Actin IgG Antibody [Pending], Hepatitis C Antibody [Pending] Height (Feet): 6 Height (Inches): 2.00 Weight (Pounds): 211 General Appearance: no apparent distress, alert EENT: normal ENT inspection Neck: normal alignment Cardiovascular: normal rate Respiratory/Chest: lungs clear Abdomen: non tender Extremities: non-tender, no edema 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
[2020-02-27] VITALS: BP 133/60
[2020-02-27 04:00] VITALS: BP 140/77
[2020-02-27] MEDS ORDERED: Heparin Sod 1000 units/ml 10ml IV PRN (06:00)
[2020-02-27] MEDS: GlipiZIDE 5mg tab ORAL SCH ×2 (06:23→16:30)
[2020-02-27] MEDS: HydrALAZINE 50mg tab ORAL SCH ×3 (06:24→22:03)
[2020-02-27] MEDS: NIFEdipine 10mg cap ORAL SCH ×3 (06:25→22:03)
[2020-02-27] MEDS: NovoLOG Insulin Flexpen SUBQ SCH ×4 (06:25→21:00)
[2020-02-27 07:24] LABS: HEMATOCRIT 19.1 % (42.0-52.0); MEAN CORPUSCULAR VOLUME 67 FL (80-99); PLATELET COUNT 82 K/UL (150-450); RED BLOOD COUNT 2.87 M/UL (4.70-6.10); RED CELL DISTRIBUTION WIDTH 17.8 % (11.6-14.8); WHITE BLOOD COUNT 5.5 K/UL (4.8-10.8)
[2020-02-27 07:27] LABS: ALANINE AMINOTRANSFERASE 16 U/L (12-78); ALBUMIN 3.1 G/DL (3.4-5.0); ALBUMIN/GLOBULIN RATIO 0.9 (1.0-2.7); ALKALINE PHOSPHATASE 105 U/L (46-116); ANION GAP 11 mmol/L (5-15); ASPARTATE AMINO TRANSFERASE 13 U/L (15-37); BILIRUBIN,TOTAL 0.7 MG/DL (0.2-1.0); BLOOD UREA NITROGEN 57 mg/dL (7-18); CALCIUM 7.3 MG/DL (8.5-10.1); CARBON DIOXIDE 27 MMOL/L (21-32); CHLORIDE 101 MMOL/L (98-107); CREATININE 10.2 MG/DL (0.55-1.30); POTASSIUM 3.8 MMOL/L (3.5-5.1); SODIUM 139 MMOL/L (136-145)
[2020-02-27 07:34] LABS: HEMOGLOBIN 6.7 G/DL (14.2-18.0)
[2020-02-27 08:00] VITALS: BP 121/57
[2020-02-27] MEDS: Carvedilol 12.5mg tab ORAL SCH ×2 (09:00→22:04)
[2020-02-27] MEDS: Imdur 30mg tab ORAL SCH (09:00)
[2020-02-27] MEDS: Benazepril 10mg tab ORAL SCH (09:00)
--- NOTE | 2020-02-27 09:33 | General Progress Note ---
Assessment/Plan Problem List: (1) Anemia ICD Codes: D64.9 - Anemia, unspecified SNOMED: 656147635 (2) Renal failure ICD Codes: N19 - Unspecified kidney failure SNOMED: 74375787 (3) GIB (gastrointestinal bleeding) ICD Codes: K92.2 - Gastrointestinal hemorrhage, unspecified SNOMED: 61176227 (4) HTN (hypertension) ICD Codes: I10 - Essential (primary) hypertension SNOMED: 90997514 Status: stable Assessment/Plan: HD per renal titrate bp rx transfuse with HD today paracentesis thyroid replacement echo antiemetics PPI rx monitor for bleeding GI follow up. Subjective ROS Limited/Unobtainable: No Constitutional: Reports: malaise, weakness HEENT: Reports: no symptoms Cardiovascular: Reports: no symptoms Respiratory: Reports: cough Gastrointestinal/Abdominal: Reports: no symptoms Genitourinary: Reports: no symptoms Neurologic/Psychiatric: Reports: no symptoms Endocrine: Reports: no symptoms Hematologic/Lymphatic: Reports: anemia Allergies: Coded Allergies: No Known Allergies (Unverified , 01/17/17) All Systems: reviewed and negative except above Subjective vomiting. no melena or brbpr. h/h down again. stool ob +. no fever or chills. HD due today. no chest pain. gi and renal noted Objective Last 24 Hour Vital Signs Date Time Temp Pulse Resp B/P (MAP) Pulse Ox O2 Delivery O2 Flow Rate FiO2 02/27/20 08:00 96.7 78 19 121/57 (78) 97 02/27/20 06:25 75 140/77 02/27/20 06:24 140/77 02/27/20 04:00 98.1 68 18 140/77 (98) 97 02/27/20 04:00 75 02/27/20 00:00 77 02/27/20 00:00 97.7 78 18 133/60 (84) 97 02/26/20 22:22 75 185/84 02/26/20 22:22 185/84 02/26/20 22:20 75 185/84 02/26/20 21:50 98.1 75 18 185/84 (117) 97 02/26/20 21:00 Room Air 02/26/20 20:00 70 02/26/20 20:00 97.7 72 18 168/73 (104) 98 02/26/20 16:00 69 02/26/20 16:00 97.5 71 20 156/78 (104) 98 02/26/20 13:40 72 138/66 02/26/20 13:40 138/66 02/26/20 12:00 97.7 72 18 138/66 (90) 97 02/26/20 12:00 72 Intake and Output 02/26/20 02/27/20 19:00 07:00 Intake Total 360 ml Output Total 1 ml Balance 359 ml Intake Oral 360 ml Output Emesis 1 ml Laboratory Tests 02/27/20 05:53: White Blood Count 5.5, Red Blood Count 2.87L, Hemoglobin 6.7*L, Hematocrit 19.1L , Mean Corpuscular Volume 67L, Mean Corpuscular Hemoglobin 23.3L, Mean Corpuscular Hemoglobin Concent 35.0, Red Cell Distribution Width 17.8H, Platelet Count 82L, Mean Platelet Volume 5.4L, Neutrophils (%) (Auto) , Lymphocytes (%) (Auto) , Monocytes (%) (Auto) , Eosinophils (%) (Auto) , Basophils (%) (Auto) , Neutrophils % (Manual) [Pending], Lymphocytes % (Manual) [Pending], Platelet Estimate [Pending], Platelet Morphology [Pending], Sodium Level 139, Potassium Level 3.8, Chloride Level 101, Carbon Dioxide Level 27, Anion Gap 11, Blood Urea Nitrogen 57H, Creatinine 10.2H, Estimat Glomerular Filtration Rate 6.2, Glucose Level 110H, Calcium Level 7.3L, Total Bilirubin 0.7 , Aspartate Amino Transf (AST/SGOT) 13L, Alanine Aminotransferase (ALT/SGPT) 16 , Alkaline Phosphatase 105, Total Protein 6.7, Albumin 3.1L, Globulin 3.6, Albumin/Globulin Ratio 0.9L Height (Feet): 6 Height (Inches): 2.00 Weight (Pounds): 200 Objective General Appearance: WD/WN, alert Neck: supple Cardiovascular: regular rhythm Respiratory/Chest: lungs clear Abdomen: normal bowel sounds, non tender, soft, no organomegaly Edema: no edema noted Arm (L), no edema noted Arm (R), no edema noted Leg (L), no edema noted Leg (R), no edema noted Pedal (L), no edema noted Pedal (R), no edema noted Generalized 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
[2020-02-27] MEDS: Sodium Citrate 30ml ORAL SCH ×3 (10:12→18:00)
[2020-02-27] MEDS: Tamsulosin 0.4mg cap ORAL SCH (10:12)
[2020-02-27] MEDS: Furosemide 80mg tab ORAL SCH ×2 (10:13→22:04)
[2020-02-27] MEDS: Heparin 5000 units/ml inj SUBQ SCH ×2 (10:22→21:00)
[2020-02-27 12:00] VITALS: BP 148/69
--- NOTE | 2020-02-27 12:27 | Nephrology Progress Note ---
Assessment/Plan Problem List: (1) Missed dialysis (2) End-stage kidney disease (3) HTN (hypertension) (4) GIB (gastrointestinal bleeding) (5) Anemia Plan continue with HD 02/24 and 02/25, GI evaluating, seen on HD feels well tolerates anemia , on epogen, appetite good Subjective Constitutional: Reports: weakness HEENT: Reports: no symptoms Genitourinary: Reports: no symptoms Neurologic/Psychiatric: Reports: no symptoms Objective Objective Last 24 Hour Vital Signs Date Time Temp Pulse Resp B/P (MAP) Pulse Ox O2 Delivery O2 Flow Rate FiO2 02/27/20 08:00 96.7 78 19 121/57 (78) 97 02/27/20 06:25 75 140/77 02/27/20 06:24 140/77 02/27/20 04:00 98.1 68 18 140/77 (98) 97 02/27/20 04:00 75 02/27/20 00:00 77 02/27/20 00:00 97.7 78 18 133/60 (84) 97 02/26/20 22:22 75 185/84 02/26/20 22:22 185/84 02/26/20 22:20 75 185/84 02/26/20 21:50 98.1 75 18 185/84 (117) 97 02/26/20 21:00 Room Air 02/26/20 20:00 70 02/26/20 20:00 97.7 72 18 168/73 (104) 98 02/26/20 16:00 69 02/26/20 16:00 97.5 71 20 156/78 (104) 98 02/26/20 13:40 72 138/66 02/26/20 13:40 138/66 Intake and Output 02/26/20 02/27/20 19:00 07:00 Intake Total 360 ml Output Total 1 ml Balance 359 ml Intake Oral 360 ml Output Emesis 1 ml Laboratory Tests 02/27/20 05:53: White Blood Count 5.5, Red Blood Count 2.87L, Hemoglobin 6.7*L, Hematocrit 19.1L , Mean Corpuscular Volume 67L, Mean Corpuscular Hemoglobin 23.3L, Mean Corpuscular Hemoglobin Concent 35.0, Red Cell Distribution Width 17.8H, Platelet Count 82L, Mean Platelet Volume 5.4L, Neutrophils (%) (Auto) , Lymphocytes (%) (Auto) , Monocytes (%) (Auto) , Eosinophils (%) (Auto) , Basophils (%) (Auto) , Differential Total Cells Counted 100, Neutrophils % ( Manual) 70, Lymphocytes % (Manual) 18L, Monocytes % (Manual) 10, Eosinophils % ( Manual) 2, Basophils % (Manual) 0, Band Neutrophils 0, Platelet Estimate DecreasedL, Platelet Morphology Normal, Hypochromasia 4+, Anisocytosis 1+, Sodium Level 139, Potassium Level 3.8, Chloride Level 101, Carbon Dioxide Level 27, Anion Gap 11, Blood Urea Nitrogen 57H, Creatinine 10.2H, Estimat Glomerular Filtration Rate 6.2, Glucose Level 110H, Calcium Level 7.3L, Total Bilirubin 0.7 , Aspartate Amino Transf (AST/SGOT) 13L, Alanine Aminotransferase (ALT/SGPT) 16 , Alkaline Phosphatase 105, Total Protein 6.7, Albumin 3.1L, Globulin 3.6, Albumin/Globulin Ratio 0.9L Height (Feet): 6 Height (Inches): 2.00 Weight (Pounds): 200 General Appearance: no apparent distress, alert EENT: normal ENT inspection Neck: supple Cardiovascular: regular rhythm Respiratory/Chest: lungs clear Abdomen: non tender, soft Extremities: no edema 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
--- NOTE | 2020-02-27 18:30 | Pre-Procedure Note/Attestation ---
Pre-Procedure Note/Attestation Complete Prior to Procedure Planned Procedure: not applicable Procedure Narrative: paracentesis Indications for Procedure Pre-Operative Diagnosis: ascites Attestation I attest that I discussed the nature of the procedure; its benefits; risks and complications; and alternatives (and the risks and benefits of such alternatives ), prior to the procedure, with the patient (or the patient's legal graphic art sales representative). I attest that, if there was a reasonable possibility of needing a blood transfusion, the patient (or the patient's legal graphic art sales representative) was given the [facility] standardized written summary, pursuant to the [place] Blood Safety Act ([place] Health and Safety Code # 1645, as amended). I attest that I re-evaluated the patient just prior to the surgery and that there has been no change in the patient's H&P, except as documented below: Mahamed Thao MD Feb 27, 2020 18:30
--- NOTE | 2020-02-27 18:31 | Brief Operative Note ---
Immediate Post Operative Note Operative Note Pre-op Diagnosis: ascites Procedure: Paracentesis Post-op Diagnosis: same as pre-op Surgeon: Jg Collado Anesthesia: local Specimen: yes - 50 ml fluid sent to lab Complications: none Fluids: none Implant(s) used?: No Mahamed Collado MD Feb 27, 2020 18:31
--- NOTE | 2020-02-27 19:04 | Diagnostic Imaging Report ---
Indications: Ascites Technique: Ultrasound used to localize optimal puncture site. Sterile prepping and draping . Local anesthesia with 1% lidocaine. Under real-time ultrasound guidance, puncture peritoneal space using paracentesis needle. Stylet removed. Catheter placed to vacuum bottle suction. Total 9.6 liters of fluid aspirated. A specimen was sent to the lab. Patient tolerated procedure well, without immediate complication. Findings: Followup sonography demonstrates complete resolution of peritoneal fluid. Impression: Successful ultrasound-guided paracentesis, yielding 9.6 liters of fluid
[2020-02-27 19:35] LABS: ANION GAP 9 mmol/L (5-15); BLOOD UREA NITROGEN 36 mg/dL (7-18); CALCIUM 7.8 MG/DL (8.5-10.1); CARBON DIOXIDE 30 MMOL/L (21-32); CHLORIDE 102 MMOL/L (98-107); CREATININE 7.1 MG/DL (0.55-1.30); POTASSIUM 3.9 MMOL/L (3.5-5.1); SODIUM 141 MMOL/L (136-145)
[2020-02-27 19:50] LABS: HEMATOCRIT 23.8 % (42.0-52.0); HEMOGLOBIN 7.5 G/DL (14.2-18.0); MEAN CORPUSCULAR VOLUME 74 FL (80-99); RED BLOOD COUNT 3.21 M/UL (4.70-6.10); WHITE BLOOD COUNT 5.4 K/UL (4.8-10.8)
[2020-02-27 19:51] LABS: PLATELET COUNT 72 K/UL (150-450); RED CELL DISTRIBUTION WIDTH 22.4 % (11.6-14.8)
[2020-02-27 20:00] VITALS: BP 181/69
--- NOTE | 2020-02-27 21:44 | General Progress Note ---
Assessment/Plan Status: stable Assessment/Plan: Assessment - Cirrhosis, ? etiology - Ascites - s/p 9.6 liter paracentesis - Thrombocytopenia - ESRD / HD - N/V, Diarrhea - small volume Hematemesis, BRBPR - Anemia Recommendations - RBC transfusion PRN - IV Fe - Paracentesis - done - IV PPI - Cirrhosis serologic w/u - check AFP - Liver imaging - after endoscopy - stool cultures / C Diff - EGD in am Subjective Allergies: Coded Allergies: No Known Allergies (Unverified , 01/17/17) Subjective Seen this am feels OK did not get paracentesis yesterday no N/V tolerating PO transfusion orders noted getting daily HD OB (+) Objective Last 24 Hour Vital Signs Date Time Temp Pulse Resp B/P (MAP) Pulse Ox O2 Delivery O2 Flow Rate FiO2 02/27/20 20:00 98.1 75 20 181/69 (106) 95 02/27/20 16:00 81 02/27/20 12:00 98.1 64 19 148/69 (95) 97 02/27/20 12:00 72 02/27/20 09:00 Room Air 02/27/20 08:00 78 02/27/20 08:00 96.7 78 19 121/57 (78) 97 02/27/20 06:25 75 140/77 02/27/20 06:24 140/77 02/27/20 04:00 98.1 68 18 140/77 (98) 97 02/27/20 04:00 75 02/27/20 00:00 77 02/27/20 00:00 97.7 78 18 133/60 (84) 97 02/26/20 22:22 75 185/84 02/26/20 22:22 185/84 02/26/20 22:20 75 185/84 02/26/20 21:50 98.1 75 18 185/84 (117) 97 Intake and Output 02/26/20 02/27/20 19:00 07:00 Intake Total 360 ml Output Total 1 ml Balance 359 ml Intake Oral 360 ml Output Emesis 1 ml Laboratory Tests 02/27/20 05:53: White Blood Count 5.5, Red Blood Count 2.87L, Hemoglobin 6.7*L, Hematocrit 19.1L , Mean Corpuscular Volume 67L, Mean Corpuscular Hemoglobin 23.3L, Mean Corpuscular Hemoglobin Concent 35.0, Red Cell Distribution Width 17.8H, Platelet Count 82L, Mean Platelet Volume 5.4L, Neutrophils (%) (Auto) , Lymphocytes (%) (Auto) , Monocytes (%) (Auto) , Eosinophils (%) (Auto) , Basophils (%) (Auto) , Differential Total Cells Counted 100, Neutrophils % ( Manual) 70, Lymphocytes % (Manual) 18L, Monocytes % (Manual) 10, Eosinophils % ( Manual) 2, Basophils % (Manual) 0, Band Neutrophils 0, Platelet Estimate DecreasedL, Platelet Morphology Normal, Hypochromasia 4+, Anisocytosis 1+, Sodium Level 139, Potassium Level 3.8, Chloride Level 101, Carbon Dioxide Level 27, Anion Gap 11, Blood Urea Nitrogen 57H, Creatinine 10.2H, Estimat Glomerular Filtration Rate 6.2, Glucose Level 110H, Calcium Level 7.3L, Total Bilirubin 0.7 , Aspartate Amino Transf (AST/SGOT) 13L, Alanine Aminotransferase (ALT/SGPT) 16 , Alkaline Phosphatase 105, Total Protein 6.7, Albumin 3.1L, Globulin 3.6, Albumin/Globulin Ratio 0.9L 02/27/20 19:20: White Blood Count 5.4, Red Blood Count 3.21L, Hemoglobin 7.5L, Hematocrit 23.8L , Mean Corpuscular Volume 74#L, Mean Corpuscular Hemoglobin 23.3L, Mean Corpuscular Hemoglobin Concent 31.5L, Red Cell Distribution Width 22.4H, Platelet Count 72L, Mean Platelet Volume 7.3, Neutrophils (%) (Auto) , Lymphocytes (%) (Auto) , Monocytes (%) (Auto) , Eosinophils (%) (Auto) , Basophils (%) (Auto) , Differential Total Cells Counted 100, Neutrophils % ( Manual) 75, Lymphocytes % (Manual) 15L, Monocytes % (Manual) 8, Eosinophils % ( Manual) 2, Basophils % (Manual) 0, Band Neutrophils 0, Platelet Estimate DecreasedL, Platelet Morphology Normal, Hypochromasia 2+, Anisocytosis 2+, Sodium Level 141, Potassium Level 3.9, Chloride Level 102, Carbon Dioxide Level 30, Anion Gap 9, Blood Urea Nitrogen 36H, Creatinine 7.1H, Estimat Glomerular Filtration Rate 9.5, Glucose Level 132H, Calcium Level 7.8L, Microcytosis 2+, Schistocytes Occasional Height (Feet): 6 Height (Inches): 2.00 Weight (Pounds): 200 Objective WDWN AA man NCAT supple CTA RR abd distended, (+) fluid waive no edema non-focal Merna Serrano MD Feb 27, 2020 21:44
[2020-02-27 22:00] VITALS: BP 155/61
[2020-02-27] MEDS: Epoetin Alfa-EPBX(ESRD on dialysis)3000 units/ml vial SUBQ SCH (22:04)
[2020-02-28] VITALS (12 sets, daily range): BP systolic 122–161; BP diastolic 58–76
[2020-02-28] MEDS: NovoLOG Insulin Flexpen SUBQ SCH ×4 (05:58→21:38)
[2020-02-28] MEDS ORDERED: Heparin Sod 1000 units/ml 10ml IV PRN (06:00)
[2020-02-28] MEDS: NIFEdipine 10mg cap ORAL SCH ×3 (06:28→21:40)
[2020-02-28] MEDS: GlipiZIDE 5mg tab ORAL SCH ×2 (06:28→16:30)
[2020-02-28] MEDS: HydrALAZINE 50mg tab ORAL SCH ×3 (06:28→23:08)
[2020-02-28 08:12] LABS: HEMATOCRIT 23.4 % (42.0-52.0); HEMOGLOBIN 8.2 G/DL (14.2-18.0); MEAN CORPUSCULAR VOLUME 70 FL (80-99); PLATELET COUNT 84 K/UL (150-450); RED BLOOD COUNT 3.36 M/UL (4.70-6.10); RED CELL DISTRIBUTION WIDTH 19.4 % (11.6-14.8); WHITE BLOOD COUNT 7.6 K/UL (4.8-10.8)
[2020-02-28 08:23] LABS: INR 1.1 (0.9-1.1)
--- NOTE | 2020-02-28 08:43 | Anethesia Preoperative Eval ---
Anesthesia Pre-op PMH/ROS General Date of Evaluation: Feb 28, 2020 Time of Evaluation: 08:40 Anesthesiologist: Anthony ASA Score: ASA 3 Mallampati Score Class I : Soft palate, uvula, fauces, pillars visible Class II: Soft palate, uvula, fauces visible Class III: Soft palate, base of uvula visible Class IV: Only hard plate visible Mallampati Classification: Class II Surgeon: Giuseppe Diagnosis: Anemia Surgical Procedure: EGD Anesthesia History: none Family History: no anesthesia problems Allergies: Coded Allergies: No Known Allergies (Unverified , 01/17/17) Medications: see eMAR Patient NPO?: Yes Past Medical History Cardiovascular: Reports: HTN; Denies: CAD, ME, valve dz, arrhythmia, other Pulmonary: Denies: asthma, COPD, MASOUD, other Gastrointestinal/Genitourinary: Reports: GERD, ESRD - on HD; Denies: CRI, other Neurologic/Psychiatric: Reports: depression/anxiety; Denies: dementia, CVA, TIA, other Endocrine: Reports: DM; Denies: hypothyroidism, steroids, other HEENT: Denies: cataract (L), cataract (R), glaucoma, TETLIN (L), TETLIN (R), other Hematology/Immune: Reports: anemia - of chronic d-s; Denies: DVT, bleeding disorder, other Musculoskeletal/Integumentary: Reports: OA; Denies: RA, DJD, DDD, edema, other PMH Narrative: as above PSxH Narrative: see H&P Anesthesia Pre-op Phys. Exam Physician Exam Last Vital Signs Date Time Temp Pulse Resp B/P (MAP) Pulse Ox O2 Delivery O2 Flow Rate FiO2 02/28/20 06:28 78 145/60 02/28/20 04:00 96.9 18 96 02/27/20 21:00 Room Air Constitutional: NAD Neurologic: CN 2-12 intact Cardiovascular: RRR, no M/R/G Respiratory: CTA Gastrointestinal: S/NT/ND Airway Exam Mallampati Score: Class II MO: full Neck: stiff ROM: limited Teeth: missing Dentures: no upper, no lower Anesthesia Pre-op A/P Labs Hematology Test 02/27/20 19:20 02/28/20 07:45 White Blood Count 5.4 K/UL (4.8-10.8) 7.6 K/UL (4.8-10.8) Red Blood Count 3.21 M/UL (4.70-6.10) L 3.36 M/UL (4.70-6.10) L Hemoglobin 7.5 G/DL (14.2-18.0) L 8.2 G/DL (14.2-18.0) L Hematocrit 23.8 % (42.0-52.0) L 23.4 % (42.0-52.0) L Mean Corpuscular Volume 74 FL (80-99) #L 70 FL (80-99) L Mean Corpuscular Hemoglobin 23.3 PG (27.0-31.0) L 24.5 PG (27.0-31.0) L Mean Corpuscular Hemoglobin Concent 31.5 G/DL (32.0-36.0) L 35.2 G/DL (32.0-36.0) Red Cell Distribution Width 22.4 % (11.6-14.8) H 19.4 % (11.6-14.8) H Platelet Count 72 K/UL (150-450) L 84 K/UL (150-450) L Mean Platelet Volume 7.3 FL (6.5-10.1) 5.9 FL (6.5-10.1) L Neutrophils (%) (Auto) % (45.0-75.0) % (45.0-75.0) Lymphocytes (%) (Auto) % (20.0-45.0) % (20.0-45.0) Monocytes (%) (Auto) % (1.0-10.0) % (1.0-10.0) Eosinophils (%) (Auto) % (0.0-3.0) % (0.0-3.0) Basophils (%) (Auto) % (0.0-2.0) % (0.0-2.0) Differential Total Cells Counted 100 Neutrophils % (Manual) 75 % (45-75) Pending Lymphocytes % (Manual) 15 % (20-45) L Pending Monocytes % (Manual) 8 % (1-10) Eosinophils % (Manual) 2 % (0-3) Basophils % (Manual) 0 % (0-2) Band Neutrophils 0 % (0-8) Platelet Estimate Decreased L Pending Platelet Morphology Normal Pending Hypochromasia 2+ Anisocytosis 2+ Microcytosis 2+ Schistocytes Occasional Coagulation Test 02/28/20 07:45 Prothrombin Time 12.4 SEC (9.30-11.50) H Prothromb Time International Ratio 1.1 (0.9-1.1) Chemistry Test 02/27/20 19:20 Sodium Level 141 MMOL/L (136-145) Potassium Level 3.9 MMOL/L (3.5-5.1) Chloride Level 102 MMOL/L (98-107) Carbon Dioxide Level 30 MMOL/L (21-32) Anion Gap 9 mmol/L (5-15) Blood Urea Nitrogen 36 mg/dL (7-18) H Creatinine 7.1 MG/DL (0.55-1.30) H Estimat Glomerular Filtration Rate 9.5 mL/min (>60) Glucose Level 132 MG/DL (74-106) H Calcium Level 7.8 MG/DL (8.5-10.1) L Studies Pre-op Studies: EKG - SR Risk Assessment & Plan Assessment: ASA 3 Plan: MAC Status Change Before Surgery: Pineda Dumont MD Feb 28, 2020 08:43
[2020-02-28] MEDS ORDERED: NS 500ML IVPB ONE (08:45)
[2020-02-28] MEDS ORDERED: fentaNYL 100 mcg/2 mL IV PRN (08:45)
[2020-02-28] MEDS: Imdur 30mg tab ORAL SCH (09:00)
[2020-02-28] MEDS: Furosemide 80mg tab ORAL SCH ×2 (09:00→21:40)
[2020-02-28] MEDS: Sodium Citrate 30ml ORAL SCH ×2 (09:00→17:21)
[2020-02-28] MEDS ORDERED: Midazolam 2mg/2ml Inj ONE (09:00)
[2020-02-28] MEDS: Carvedilol 12.5mg tab ORAL SCH ×2 (09:00→21:40)
[2020-02-28] MEDS: Benazepril 10mg tab ORAL SCH (09:00)
[2020-02-28] MEDS: Tamsulosin 0.4mg cap ORAL SCH (09:00)
[2020-02-28] MEDS: Heparin 5000 units/ml inj SUBQ SCH ×2 (09:00→20:15)
[2020-02-28] MEDS ORDERED: fentaNYL 100 mcg/2 mL IV ONE (09:00)
--- NOTE | 2020-02-28 09:11 | General Progress Note ---
Assessment/Plan Status: stable Assessment/Plan: Assessment - Cirrhosis, ? etiology - Ascites - s/p 9.6 liter paracentesis - Thrombocytopenia - ESRD / HD - N/V, Diarrhea - small volume Hematemesis, BRBPR - Anemia Recommendations - RBC transfusion PRN - IV Fe - Paracentesis - done - IV PPI - Cirrhosis serologic w/u - check AFP - Liver imaging - after endoscopy - stool cultures / C Diff - EGD today - will consider colonoscopy at later date Subjective Allergies: Coded Allergies: No Known Allergies (Unverified , 01/17/17) Subjective Seen this am feels OK s/p 9 liter tap abd smaller NPO for EGD Objective Last 24 Hour Vital Signs Date Time Temp Pulse Resp B/P (MAP) Pulse Ox O2 Delivery O2 Flow Rate FiO2 02/28/20 08:00 99.0 76 18 127/58 (81) 96 02/28/20 06:28 78 145/60 02/28/20 06:28 145/60 02/28/20 04:00 96.9 75 18 145/60 (88) 96 02/28/20 04:00 78 02/28/20 00:00 97.6 82 19 132/61 (84) 97 02/28/20 00:00 81 02/27/20 22:04 81 155/61 02/27/20 22:03 81 155/61 02/27/20 22:03 155/61 02/27/20 22:00 81 155/61 (92) 02/27/20 21:00 Room Air 02/27/20 20:00 98.1 75 20 181/69 (106) 95 02/27/20 20:00 79 02/27/20 16:00 81 02/27/20 12:00 98.1 64 19 148/69 (95) 97 02/27/20 12:00 72 Intake and Output 02/27/20 02/28/20 19:00 07:00 Intake Total 1000 ml Output Total 1000 ml Balance -1000 ml 1000 ml Hemodialysis 1000 ml Hemodialysis UF 1000 ml # Voids 4 Laboratory Tests 02/27/20 19:20: White Blood Count 5.4, Red Blood Count 3.21L, Hemoglobin 7.5L, Hematocrit 23.8L , Mean Corpuscular Volume 74#L, Mean Corpuscular Hemoglobin 23.3L, Mean Corpuscular Hemoglobin Concent 31.5L, Red Cell Distribution Width 22.4H, Platelet Count 72L, Mean Platelet Volume 7.3, Neutrophils (%) (Auto) , Lymphocytes (%) (Auto) , Monocytes (%) (Auto) , Eosinophils (%) (Auto) , Basophils (%) (Auto) , Differential Total Cells Counted 100, Neutrophils % ( Manual) 75, Lymphocytes % (Manual) 15L, Monocytes % (Manual) 8, Eosinophils % ( Manual) 2, Basophils % (Manual) 0, Band Neutrophils 0, Platelet Estimate DecreasedL, Platelet Morphology Normal, Hypochromasia 2+, Anisocytosis 2+, Microcytosis 2+, Schistocytes Occasional, Sodium Level 141, Potassium Level 3.9 , Chloride Level 102, Carbon Dioxide Level 30, Anion Gap 9, Blood Urea Nitrogen 36H, Creatinine 7.1H, Estimat Glomerular Filtration Rate 9.5, Glucose Level 132H , Calcium Level 7.8L 02/28/20 07:45: White Blood Count 7.6, Red Blood Count 3.36L, Hemoglobin 8.2L, Hematocrit 23.4L , Mean Corpuscular Volume 70L, Mean Corpuscular Hemoglobin 24.5L, Mean Corpuscular Hemoglobin Concent 35.2, Red Cell Distribution Width 19.4H, Platelet Count 84L, Mean Platelet Volume 5.9L, Neutrophils (%) (Auto) , Lymphocytes (%) (Auto) , Monocytes (%) (Auto) , Eosinophils (%) (Auto) , Basophils (%) (Auto) , Neutrophils % (Manual) [Pending], Lymphocytes % (Manual) [Pending], Platelet Estimate [Pending], Platelet Morphology [Pending], Prothrombin Time 12.4H, Prothromb Time International Ratio 1.1 Height (Feet): 6 Height (Inches): 2.00 Weight (Pounds): 200 Objective WDWN AA man NCAT supple CTA RR abd distended, (+) fluid waive no edema non-focal Merna Serrano MD Feb 28, 2020 09:11
--- NOTE | 2020-02-28 09:11 | Pre-Procedure Note/Attestation ---
Pre-Procedure Note/Attestation Complete Prior to Procedure Planned Procedure: not applicable Procedure Narrative: egd Indications for Procedure Pre-Operative Diagnosis: gib Attestation I attest that I discussed the nature of the procedure; its benefits; risks and complications; and alternatives (and the risks and benefits of such alternatives ), prior to the procedure, with the patient (or the patient's legal client care representative). I attest that, if there was a reasonable possibility of needing a blood transfusion, the patient (or the patient's legal client care representative) was given the [facility] standardized written summary, pursuant to the [place] Blood Safety Act ([place] Health and Safety Code # 1645, as amended). I attest that I re-evaluated the patient just prior to the surgery and that there has been no change in the patient's H&P, except as documented below: Merna Serrano MD Feb 28, 2020 09:11
--- NOTE | 2020-02-28 09:28 | Immediate Post-Op Evaluation ---
Immediate Post-Op Evalulation Immediate Post-Op Evalulation Procedure: EGD with Bx Date of Evaluation: Feb 28, 2020 Time of Evaluation: 09:27 IV Fluids: 200 Blood Products: none Estimated Blood Loss: min Urinary Output: none Blood Pressure Systolic: 129 Blood Pressure Diastolic: 67 Pulse Rate: 72 Respiratory Rate: 16 O2 Sat by Pulse Oximetry: 99 Temperature (Fahrenheit): 98.2 Pain Score (1-10): 1 Nausea: No Vomiting: No Complications none Patient Status: reacts, patent, none Hydration Status: adequate Pineda Cruz MD Feb 28, 2020 09:28
--- NOTE | 2020-02-28 10:17 | Endoscopy Procedure Note ---
Endoscopy Procedure Note General Indication for Procedure: ugib Procedures Performed: EGD Operative Findings/Diagnosis: erosive gastritis Specimen: yes Pt Tolerated Procedure Well: Yes Estimated Blood Loss: none Anesthesia Anesthesiologist: Anthony Anesthesia: MAC Medications Medication Given: see anesthesia record Inserted Devices Implant(s) used?: No GI Core Measures 50 yrs or older w/o bx or poly: Not Applicable 10yrs. F/U recommended: Not Applicable Merna Serrano MD Feb 28, 2020 10:17
--- NOTE | 2020-02-28 10:18 | Brief Operative Note ---
Immediate Post Operative Note Operative Note Chief Complaint: ugib Pre-op Diagnosis: gib Procedure: egd Post-op Diagnosis: ugib Surgeon: freedom Anesthesiologist: Anthony Anesthesia: MAC Specimen: yes Complications: none Condition: stable Fluids: per anesthesia Drains: none Implant(s) used?: No Merna Serrano MD Feb 28, 2020 10:18
--- NOTE | 2020-02-28 10:21 | 48 Hour Post Anesthesia Eval ---
Post Anesthesia Evaluation Procedure: EGD with Bx Date of Evaluation: Feb 28, 2020 Time of Evaluation: 10:20 Blood Pressure Systolic: 128 0: 72 Pulse Rate: 68 Respiratory Rate: 20 Temperature (Fahrenheit): 97.8 O2 Sat by Pulse Oximetry: 98 Airway: patent Nausea: No Vomiting: No Pain Intensity: 1 Hydration Status: adequate Cardiopulmonary Status: stable Mental Status/LOC: patient returned to baseline Follow-up Care/Observations: n/a Post-Anesthesia Complications: none Follow-up care needed: N/A Pineda Cruz MD Feb 28, 2020 10:21
--- NOTE | 2020-02-28 11:00 | Progress Note ---
DATE: 02/27/2020 CARDIOLOGY PROGRESS NOTE SUBJECTIVE: The patient had some vomiting today. No chest pain. Still with shortness of breath. He is status post paracentesis with over 9 liters removed and feels better after that procedure. OBJECTIVE: VITAL SIGNS: Blood pressure 121/57, pulse 78, respirations 19. Afebrile. LUNGS: Diminished breath sounds. CARDIAC: Regular rhythm and rate. Normal S1, S2 with a 1/6 systolic murmur at lower left sternal border. ABDOMEN: Softer. No palpable ascites. EXTREMITIES: Trace dependent edema seen. IMPRESSION: 1. End-stage renal disease. 2. Ascites. 3. Acute on chronic diastolic congestive heart failure. 4. Hypertensive heart disease. 5. Gastrointestinal bleeding. 6. Pulmonary hypertension. 7. Anemia. PLAN: 1. Hemodialysis with ultrafiltration. 2. Follow up serologies. 3. Monitor hemoglobin. 4. Iron replacement. 5. Venous duplex scan. Cristofer Alegre M.D. DR: BIJU JOB#: [id number] CC: ERIK
--- NOTE | 2020-02-28 12:19 | Nephrology Progress Note ---
Assessment/Plan Problem List: (1) Missed dialysis (2) End-stage kidney disease (3) HTN (hypertension) (4) GIB (gastrointestinal bleeding) (5) Anemia Plan continue with HD 02/24 and 02/25, GI evaluating,02/27 on HD feels well tolerates anemia , on epogen, appetite good, history of unreliable attendance outpatient HD per prior agriculture mechanic Dr Oseguera Subjective Constitutional: Reports: weakness HEENT: Reports: no symptoms Genitourinary: Reports: no symptoms Neurologic/Psychiatric: Reports: no symptoms Objective Objective Last 24 Hour Vital Signs Date Time Temp Pulse Resp B/P (MAP) Pulse Ox O2 Delivery O2 Flow Rate FiO2 02/28/20 10:21 68 20 98 02/28/20 09:50 74 21 132/74 98 Room Air 02/28/20 09:43 98.2 71 20 128/71 98 Room Air 02/28/20 09:35 72 19 129/68 98 Room Air 02/28/20 09:30 71 24 130/68 100 Nasal Cannula 3 02/28/20 09:28 72 16 99 02/28/20 09:24 98.7 74 20 126/76 100 Nasal Cannula 3 02/28/20 09:00 Room Air 02/28/20 08:00 99.0 76 18 127/58 (81) 96 02/28/20 07:49 78 02/28/20 06:28 78 145/60 02/28/20 06:28 145/60 02/28/20 04:00 96.9 75 18 145/60 (88) 96 02/28/20 04:00 78 02/28/20 00:00 97.6 82 19 132/61 (84) 97 02/28/20 00:00 81 02/27/20 22:04 81 155/61 02/27/20 22:03 81 155/61 02/27/20 22:03 155/61 02/27/20 22:00 81 155/61 (92) 02/27/20 21:00 Room Air 02/27/20 20:00 98.1 75 20 181/69 (106) 95 02/27/20 20:00 79 02/27/20 16:00 81 Intake and Output 02/27/20 02/28/20 19:00 07:00 Intake Total 1000 ml Output Total 1000 ml Balance -1000 ml 1000 ml Hemodialysis 1000 ml Hemodialysis UF 1000 ml # Voids 4 Laboratory Tests 02/27/20 19:20: White Blood Count 5.4, Red Blood Count 3.21L, Hemoglobin 7.5L, Hematocrit 23.8L , Mean Corpuscular Volume 74#L, Mean Corpuscular Hemoglobin 23.3L, Mean Corpuscular Hemoglobin Concent 31.5L, Red Cell Distribution Width 22.4H, Platelet Count 72L, Mean Platelet Volume 7.3, Neutrophils (%) (Auto) , Lymphocytes (%) (Auto) , Monocytes (%) (Auto) , Eosinophils (%) (Auto) , Basophils (%) (Auto) , Differential Total Cells Counted 100, Neutrophils % ( Manual) 75, Lymphocytes % (Manual) 15L, Monocytes % (Manual) 8, Eosinophils % ( Manual) 2, Basophils % (Manual) 0, Band Neutrophils 0, Platelet Estimate DecreasedL, Platelet Morphology Normal, Hypochromasia 2+, Anisocytosis 2+, Microcytosis 2+, Schistocytes Occasional, Sodium Level 141, Potassium Level 3.9 , Chloride Level 102, Carbon Dioxide Level 30, Anion Gap 9, Blood Urea Nitrogen 36H, Creatinine 7.1H, Estimat Glomerular Filtration Rate 9.5, Glucose Level 132H , Calcium Level 7.8L 02/28/20 07:45: White Blood Count 7.6, Red Blood Count 3.36L, Hemoglobin 8.2L, Hematocrit 23.4L , Mean Corpuscular Volume 70L, Mean Corpuscular Hemoglobin 24.5L, Mean Corpuscular Hemoglobin Concent 35.2, Red Cell Distribution Width 19.4H, Platelet Count 84L, Mean Platelet Volume 5.9L, Neutrophils (%) (Auto) , Lymphocytes (%) (Auto) , Monocytes (%) (Auto) , Eosinophils (%) (Auto) , Basophils (%) (Auto) , Differential Total Cells Counted 100, Neutrophils % ( Manual) 69, Lymphocytes % (Manual) 22, Monocytes % (Manual) 6, Eosinophils % ( Manual) 2, Basophils % (Manual) 1, Band Neutrophils 0, Platelet Estimate DecreasedL, Platelet Morphology Normal, Hypochromasia 2+, Anisocytosis 2+, Microcytosis 2+, Spherocytes 2+, Prothrombin Time 12.4H, Prothromb Time International Ratio 1.1 Height (Feet): 6 Height (Inches): 2.00 Weight (Pounds): 200 General Appearance: no apparent distress, alert EENT: normal ENT inspection Neck: normal alignment Cardiovascular: regular rhythm Respiratory/Chest: lungs clear Abdomen: soft Extremities: no edema 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
--- NOTE | 2020-02-28 15:30 | Operative Note - Dictated ---
DATE OF OPERATION: 02/28/2020 GASTROENTEROLOGY PROCEDURE REPORT SURGEON: Merna Serrano MD. PROCEDURE: Upper gastrointestinal endoscopy with biopsy. ANESTHESIA: Please see the separate anesthesiologist notes for details. PRE-ENDOSCOPIC DIAGNOSIS: Upper gastrointestinal bleeding. POST-ENDOSCOPIC DIAGNOSIS: Erosive gastritis, status post biopsy. DESCRIPTION OF PROCEDURE: The procedure, its risks, indications, alternatives, and possible complications including but not limited to bleeding, infection, perforation, , and anesthesia complications were explained to the patient and informed consent was obtained. The patient was then sedated in the left lateral decubitus position and a diagnostic upper endoscope was introduced through the oropharynx and advanced to the duodenum without difficulty. The endoscope was then gradually withdrawn and the mucosa examined carefully. Examination of the upper gastrointestinal mucosa revealed erosive gastritis throughout the stomach. Biopsies were sent to pathology for review. There was no big ulcers or active bleeding identified. There were also no evidence of esophageal varices. The endoscope was removed and the patient was sent to Recovery in good condition. COMPLICATIONS: None. RECOMMENDATIONS: 1. Resume oral diet. 2. Proton pump inhibitor. 3. Check and treat Helicobacter pylori if positive. Merna Serrano M.D. DR: JOSHUA JOB#: [id number] CC:
--- NOTE | 2020-02-28 16:03 | Diagnostic Imaging Report ---
Indication: Bilateral leg pain Technique: Grayscale and duplex images of the bilateral lower extremity veins Comparison: Findings: Bilaterally, grayscale and duplex images demonstrate no evidence of intraluminal thrombus. Normal phasic Doppler waveforms, demonstrating normal augmentation response and no evidence of valvular insufficiency. Greater saphenous vein(s) and tibial veins are patent. Normal compressibility. Impression: Negative for evidence of lower extremity deep venous thrombosis bilaterally
--- NOTE | 2020-02-28 16:07 | General Progress Note ---
Assessment/Plan Problem List: (1) Anemia ICD Codes: D64.9 - Anemia, unspecified SNOMED: 844519005 (2) Renal failure ICD Codes: N19 - Unspecified kidney failure SNOMED: 21985272 (3) GIB (gastrointestinal bleeding) ICD Codes: K92.2 - Gastrointestinal hemorrhage, unspecified SNOMED: 48818408 (4) HTN (hypertension) ICD Codes: I10 - Essential (primary) hypertension SNOMED: 88376676 Status: stable Assessment/Plan: HD per renal titrate bp rx transfuse with HD today follow up egd results thyroid replacement echo antiemetics PPI rx monitor for bleeding GI follow up. Subjective ROS Limited/Unobtainable: No Constitutional: Reports: malaise, weakness HEENT: Reports: no symptoms Cardiovascular: Reports: no symptoms Respiratory: Reports: no symptoms Gastrointestinal/Abdominal: Reports: blood in stool, vomiting Genitourinary: Reports: no symptoms Neurologic/Psychiatric: Reports: no symptoms Endocrine: Reports: no symptoms Hematologic/Lymphatic: Reports: anemia Allergies: Coded Allergies: No Known Allergies (Unverified , 01/17/17) All Systems: reviewed and negative except above Subjective no vomiting. for egd today. no fever or chills. no sob. no bleeding. no cp/sob. Objective Last 24 Hour Vital Signs Date Time Temp Pulse Resp B/P (MAP) Pulse Ox O2 Delivery O2 Flow Rate FiO2 02/28/20 14:00 74 129/69 02/28/20 14:00 129/69 02/28/20 12:35 74 02/28/20 12:00 98.1 73 18 129/69 (89) 98 02/28/20 10:30 98.5 74 20 122/61 (81) 97 02/28/20 10:21 68 20 98 02/28/20 09:50 74 21 132/74 98 Room Air 02/28/20 09:43 98.2 71 20 128/71 98 Room Air 02/28/20 09:35 72 19 129/68 98 Room Air 02/28/20 09:30 71 24 130/68 100 Nasal Cannula 3 02/28/20 09:28 72 16 99 02/28/20 09:24 98.7 74 20 126/76 100 Nasal Cannula 3 02/28/20 09:00 Room Air 02/28/20 08:00 99.0 76 18 127/58 (81) 96 02/28/20 07:49 78 02/28/20 06:28 78 145/60 02/28/20 06:28 145/60 02/28/20 04:00 96.9 75 18 145/60 (88) 96 02/28/20 04:00 78 02/28/20 00:00 97.6 82 19 132/61 (84) 97 02/28/20 00:00 81 02/27/20 22:04 81 155/61 02/27/20 22:03 81 155/61 02/27/20 22:03 155/61 02/27/20 22:00 81 155/61 (92) 02/27/20 21:00 Room Air 02/27/20 20:00 98.1 75 20 181/69 (106) 95 02/27/20 20:00 79 Intake and Output 02/27/20 02/28/20 19:00 07:00 Intake Total 1000 ml Output Total 1000 ml Balance -1000 ml 1000 ml Hemodialysis 1000 ml Hemodialysis UF 1000 ml # Voids 4 Laboratory Tests 02/27/20 19:20: White Blood Count 5.4, Red Blood Count 3.21L, Hemoglobin 7.5L, Hematocrit 23.8L , Mean Corpuscular Volume 74#L, Mean Corpuscular Hemoglobin 23.3L, Mean Corpuscular Hemoglobin Concent 31.5L, Red Cell Distribution Width 22.4H, Platelet Count 72L, Mean Platelet Volume 7.3, Neutrophils (%) (Auto) , Lymphocytes (%) (Auto) , Monocytes (%) (Auto) , Eosinophils (%) (Auto) , Basophils (%) (Auto) , Differential Total Cells Counted 100, Neutrophils % ( Manual) 75, Lymphocytes % (Manual) 15L, Monocytes % (Manual) 8, Eosinophils % ( Manual) 2, Basophils % (Manual) 0, Band Neutrophils 0, Platelet Estimate DecreasedL, Platelet Morphology Normal, Hypochromasia 2+, Anisocytosis 2+, Microcytosis 2+, Schistocytes Occasional, Sodium Level 141, Potassium Level 3.9 , Chloride Level 102, Carbon Dioxide Level 30, Anion Gap 9, Blood Urea Nitrogen 36H, Creatinine 7.1H, Estimat Glomerular Filtration Rate 9.5, Glucose Level 132H , Calcium Level 7.8L 02/28/20 07:45: White Blood Count 7.6, Red Blood Count 3.36L, Hemoglobin 8.2L, Hematocrit 23.4L , Mean Corpuscular Volume 70L, Mean Corpuscular Hemoglobin 24.5L, Mean Corpuscular Hemoglobin Concent 35.2, Red Cell Distribution Width 19.4H, Platelet Count 84L, Mean Platelet Volume 5.9L, Neutrophils (%) (Auto) , Lymphocytes (%) (Auto) , Monocytes (%) (Auto) , Eosinophils (%) (Auto) , Basophils (%) (Auto) , Differential Total Cells Counted 100, Neutrophils % ( Manual) 69, Lymphocytes % (Manual) 22, Monocytes % (Manual) 6, Eosinophils % ( Manual) 2, Basophils % (Manual) 1, Band Neutrophils 0, Platelet Estimate DecreasedL, Platelet Morphology Normal, Hypochromasia 2+, Anisocytosis 2+, Microcytosis 2+, Spherocytes 2+, Prothrombin Time 12.4H, Prothromb Time International Ratio 1.1 Height (Feet): 6 Height (Inches): 2.00 Weight (Pounds): 200 Objective General Appearance: WD/WN, alert Neck: supple Cardiovascular: regular rhythm Respiratory/Chest: lungs clear Abdomen: normal bowel sounds, non tender, soft, no organomegaly Edema: no edema noted Arm (L), no edema noted Arm (R), no edema noted Leg (L), no edema noted Leg (R), no edema noted Pedal (L), no edema noted Pedal (R), no edema noted Generalized Neurologic: ethnic origins teacher II-XII grossly normal, alert, oriented x 3, responsive Skin: normal pigmentation Lymphatic: normal anterior cervical (L), normal anterior cervical (R) Sahil Dixon MD Feb 28, 2020 16:07
[2020-02-29] VITALS: BP 142/66
[2020-02-29 04:00] VITALS: BP 137/77
[2020-02-29] MEDS: GlipiZIDE 5mg tab ORAL SCH (06:30)
[2020-02-29] MEDS: NovoLOG Insulin Flexpen SUBQ SCH ×4 (06:30→22:42)
[2020-02-29] MEDS: HydrALAZINE 50mg tab ORAL SCH ×3 (06:51→22:41)
[2020-02-29] MEDS: NIFEdipine 10mg cap ORAL SCH ×3 (06:52→22:41)
[2020-02-29 07:08] LABS: HEMATOCRIT 22.5 % (42.0-52.0); HEMOGLOBIN 7.4 G/DL (14.2-18.0); MEAN CORPUSCULAR VOLUME 73 FL (80-99); PLATELET COUNT 70 K/UL (150-450); RED BLOOD COUNT 3.06 M/UL (4.70-6.10); RED CELL DISTRIBUTION WIDTH 19.4 % (11.6-14.8); WHITE BLOOD COUNT 6.7 K/UL (4.8-10.8)
[2020-02-29 08:00] VITALS: BP 146/64
[2020-02-29] MEDS: Benazepril 10mg tab ORAL SCH (09:00)
[2020-02-29] MEDS: Furosemide 80mg tab ORAL SCH ×2 (09:00→22:40)
[2020-02-29] MEDS: Sodium Citrate 30ml ORAL SCH ×2 (09:00→17:19)
[2020-02-29] MEDS: Carvedilol 12.5mg tab ORAL SCH ×2 (09:00→22:42)
[2020-02-29] MEDS: Imdur 30mg tab ORAL SCH (09:00)
[2020-02-29] MEDS: Tamsulosin 0.4mg cap ORAL SCH (09:08)
--- NOTE | 2020-02-29 09:15 | Progress Note ---
DATE: 02/28/2020 CARDIOLOGY PROGRESS NOTE SUBJECTIVE: The patient is status post paracentesis yesterday. As discussed, today he had an endoscopy revealing only gastritis. PHYSICAL EXAMINATION: VITAL SIGNS: Stable. Blood pressure 161/75, pulse 86, respirations 19. LUNGS: Diminished breath sounds. No wheezing. CARDIAC: Regular rhythm and rate. Normal S1, S2. ABDOMEN: Soft. No ascites. EXTREMITIES: Without edema. IMPRESSION AND PLAN: 1. Elevated blood pressure today, may have been due to held medications for procedure. We will continue to observe and may adjust therapy if blood pressure parameters remain high. 2. End-stage renal disease, on hemodialysis. 3. Ascites, status post paracentesis. 4. Acute on chronic diastolic congestive heart failure, compensated. 5. Pulmonary hypertension, stable. 6. Anemia, on iron replacement. Plan of care reviewed and updated. Venous duplex scan was reviewed and negative for DVT. Cristofer Alegre M.D. DR: BIJU JOB#: [id number] CC:
[2020-02-29 12:00] VITALS: BP 122/51
--- NOTE | 2020-02-29 12:25 | Nephrology Progress Note ---
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 prior geothermal installer Dr Oseguera Subjective Constitutional: Reports: no symptoms HEENT: Reports: no symptoms Genitourinary: Reports: no symptoms Neurologic/Psychiatric: Reports: no symptoms Objective Objective Last 24 Hour Vital Signs Date Time Temp Pulse Resp B/P (MAP) Pulse Ox O2 Delivery O2 Flow Rate FiO2 02/29/20 09:00 Room Air 02/29/20 09:00 146/64 02/29/20 09:00 73 146/64 02/29/20 09:00 146/64 02/29/20 08:00 97.6 73 18 146/64 (91) 99 02/29/20 07:43 73 02/29/20 06:52 73 163/74 02/29/20 06:51 163/74 02/29/20 04:00 98.2 97 20 137/77 (97) 98 02/29/20 04:00 71 02/29/20 00:00 74 02/29/20 00:00 98.2 88 18 142/66 (91) 100 02/28/20 23:08 142/66 02/28/20 21:40 85 161/75 02/28/20 21:40 85 161/75 02/28/20 21:00 Room Air 02/28/20 20:00 97.8 86 19 161/75 (103) 100 02/28/20 20:00 81 02/28/20 17:20 159/71 02/28/20 16:00 98.4 77 18 159/71 (100) 99 02/28/20 15:46 75 02/28/20 14:00 74 129/69 02/28/20 14:00 129/69 02/28/20 12:35 74 Intake and Output 02/28/20 02/29/20 19:00 07:00 Intake Total 825 ml 450 ml Output Total 300 ml Balance 525 ml 450 ml Intake Oral 600 ml 450 ml IV Total 225 ml Output Urine Total 300 ml Estimated Blood Loss 0 ml # Voids 1 2 Laboratory Tests 02/29/20 05:23: White Blood Count 6.7, Red Blood Count 3.06L, Hemoglobin 7.4L, Hematocrit 22.5L , Mean Corpuscular Volume 73L, Mean Corpuscular Hemoglobin 24.2L, Mean Corpuscular Hemoglobin Concent 33.0, Red Cell Distribution Width 19.4H, Platelet Count 70L, Mean Platelet Volume 6.8, Neutrophils (%) (Auto) , Lymphocytes (%) (Auto) , Monocytes (%) (Auto) , Eosinophils (%) (Auto) , Basophils (%) (Auto) , Differential Total Cells Counted 100, Neutrophils % ( Manual) 82H, Lymphocytes % (Manual) 10L, Monocytes % (Manual) 6, Eosinophils % ( Manual) 1, Basophils % (Manual) 1, Band Neutrophils 0, Nucleated Red Blood Cells 2, Platelet Estimate DecreasedL, Platelet Morphology Normal, Hypochromasia 3+, Anisocytosis 2+, Microcytosis 2+, Spherocytes 2+ Height (Feet): 6 Height (Inches): 2.00 Weight (Pounds): 195 General Appearance: no apparent distress, alert EENT: normal ENT inspection Neck: normal alignment Cardiovascular: regular rhythm Respiratory/Chest: lungs clear Abdomen: no organomegaly Neurologic: 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
--- NOTE | 2020-02-29 14:09 | General Progress Note ---
Assessment/Plan Problem List: (1) Anemia ICD Codes: D64.9 - Anemia, unspecified SNOMED: 999933632 (2) Renal failure ICD Codes: N19 - Unspecified kidney failure SNOMED: 55117193 (3) GIB (gastrointestinal bleeding) ICD Codes: K92.2 - Gastrointestinal hemorrhage, unspecified SNOMED: 97012054 (4) HTN (hypertension) ICD Codes: I10 - Essential (primary) hypertension SNOMED: 92861721 Status: stable Assessment/Plan: HD per renal titrate bp rx transfuse with HD today thyroid replacement antiemetics as needed PPI rx monitor for bleeding GI follow up. Subjective ROS Limited/Unobtainable: No Constitutional: Reports: malaise, weakness HEENT: Reports: no symptoms Cardiovascular: Reports: no symptoms Respiratory: Reports: cough, shortness of breath Gastrointestinal/Abdominal: Reports: no symptoms Genitourinary: Reports: no symptoms Neurologic/Psychiatric: Reports: no symptoms Endocrine: Reports: no symptoms Hematologic/Lymphatic: Reports: anemia Allergies: Coded Allergies: No Known Allergies (Unverified , 01/17/17) All Systems: reviewed and negative except above Subjective decreased h/h noted. no bleeding. +SOB. no chest pain no nausea or vomiting. on PPI Objective Last 24 Hour Vital Signs Date Time Temp Pulse Resp B/P (MAP) Pulse Ox O2 Delivery O2 Flow Rate FiO2 02/29/20 12:00 98.4 76 20 122/51 (74) 100 02/29/20 11:33 76 02/29/20 09:00 Room Air 02/29/20 09:00 146/64 02/29/20 09:00 73 146/64 02/29/20 09:00 146/64 02/29/20 08:00 97.6 73 18 146/64 (91) 99 02/29/20 07:43 73 02/29/20 06:52 73 163/74 02/29/20 06:51 163/74 02/29/20 04:00 98.2 97 20 137/77 (97) 98 02/29/20 04:00 71 02/29/20 00:00 74 02/29/20 00:00 98.2 88 18 142/66 (91) 100 02/28/20 23:08 142/66 02/28/20 21:40 85 161/75 02/28/20 21:40 85 161/75 02/28/20 21:00 Room Air 02/28/20 20:00 97.8 86 19 161/75 (103) 100 02/28/20 20:00 81 02/28/20 17:20 159/71 02/28/20 16:00 98.4 77 18 159/71 (100) 99 02/28/20 15:46 75 Intake and Output 02/28/20 02/29/20 18:59 06:59 Intake Total 825 ml 450 ml Output Total 300 ml Balance 525 ml 450 ml Intake Oral 600 ml 450 ml IV Total 225 ml Output Urine Total 300 ml Estimated Blood Loss 0 ml # Voids 1 2 Laboratory Tests 02/29/20 05:23: White Blood Count 6.7, Red Blood Count 3.06L, Hemoglobin 7.4L, Hematocrit 22.5L , Mean Corpuscular Volume 73L, Mean Corpuscular Hemoglobin 24.2L, Mean Corpuscular Hemoglobin Concent 33.0, Red Cell Distribution Width 19.4H, Platelet Count 70L, Mean Platelet Volume 6.8, Neutrophils (%) (Auto) , Lymphocytes (%) (Auto) , Monocytes (%) (Auto) , Eosinophils (%) (Auto) , Basophils (%) (Auto) , Differential Total Cells Counted 100, Neutrophils % ( Manual) 82H, Lymphocytes % (Manual) 10L, Monocytes % (Manual) 6, Eosinophils % ( Manual) 1, Basophils % (Manual) 1, Band Neutrophils 0, Nucleated Red Blood Cells 2, Platelet Estimate DecreasedL, Platelet Morphology Normal, Hypochromasia 3+, Anisocytosis 2+, Microcytosis 2+, Spherocytes 2+ Height (Feet): 6 Height (Inches): 2.00 Weight (Pounds): 195 Objective General Appearance: WD/WN, alert Neck: supple Cardiovascular: regular rhythm Respiratory/Chest: lungs clear Abdomen: normal bowel sounds, non tender, soft, no organomegaly Edema: no edema noted Arm (L), no edema noted Arm (R), no edema noted Leg (L), no edema noted Leg (R), no edema noted Pedal (L), no edema noted Pedal (R), no edema noted Generalized Neurologic: 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
[2020-02-29 16:00] VITALS: BP 153/69
[2020-02-29 20:00] VITALS: BP 150/53
--- NOTE | 2020-02-29 22:19 | General Progress Note ---
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 - Hepatitis C antibody (+) - Ascites - s/p 9.6 liter paracentesis - Thrombocytopenia - ESRD / HD - N/V, Diarrhea - small volume Hematemesis, BRBPR - Anemia Recommendations - RBC transfusion PRN - IV Fe - Paracentesis - done - IV PPI - Cirrhosis serologic w/u - check AFP - Liver imaging - after endoscopy - stool cultures / C Diff - Outpatient HCV eradication - will consider colonoscopy at later date Subjective Allergies: Coded Allergies: No Known Allergies (Unverified , 01/17/17) Subjective Seen this am feels OK s/p 9 liter paracentesis 2 days ago s/p EGD yesterday --> gastritis Labs now show HEPATITIS C POSITIVE Objective Last 24 Hour Vital Signs Date Time Temp Pulse Resp B/P (MAP) Pulse Ox O2 Delivery O2 Flow Rate FiO2 02/29/20 21:00 Room Air 02/29/20 20:00 98.0 82 18 150/53 (85) 98 02/29/20 16:00 98.0 80 20 153/69 (97) 100 02/29/20 15:32 68 02/29/20 14:00 76 122/51 02/29/20 14:00 122/51 02/29/20 12:00 98.4 76 20 122/51 (74) 100 02/29/20 11:33 76 02/29/20 09:00 Room Air 02/29/20 09:00 146/64 02/29/20 09:00 73 146/64 02/29/20 09:00 146/64 02/29/20 08:00 97.6 73 18 146/64 (91) 99 02/29/20 07:43 73 02/29/20 06:52 73 163/74 02/29/20 06:51 163/74 02/29/20 04:00 98.2 97 20 137/77 (97) 98 02/29/20 04:00 71 02/29/20 00:00 74 02/29/20 00:00 98.2 88 18 142/66 (91) 100 02/28/20 23:08 142/66 Intake and Output 02/28/20 02/29/20 19:00 07:00 Intake Total 825 ml 450 ml Output Total 300 ml Balance 525 ml 450 ml Intake Oral 600 ml 450 ml IV Total 225 ml Output Urine Total 300 ml Estimated Blood Loss 0 ml # Voids 1 2 Laboratory Tests 02/29/20 05:23: White Blood Count 6.7, Red Blood Count 3.06L, Hemoglobin 7.4L, Hematocrit 22.5L , Mean Corpuscular Volume 73L, Mean Corpuscular Hemoglobin 24.2L, Mean Corpuscular Hemoglobin Concent 33.0, Red Cell Distribution Width 19.4H, Platelet Count 70L, Mean Platelet Volume 6.8, Neutrophils (%) (Auto) , Lymphocytes (%) (Auto) , Monocytes (%) (Auto) , Eosinophils (%) (Auto) , Basophils (%) (Auto) , Differential Total Cells Counted 100, Neutrophils % ( Manual) 82H, Lymphocytes % (Manual) 10L, Monocytes % (Manual) 6, Eosinophils % ( Manual) 1, Basophils % (Manual) 1, Band Neutrophils 0, Nucleated Red Blood Cells 2, Platelet Estimate DecreasedL, Platelet Morphology Normal, Hypochromasia 3+, Anisocytosis 2+, Microcytosis 2+, Spherocytes 2+ Height (Feet): 6 Height (Inches): 2.00 Weight (Pounds): 195 Objective WDWN AA man NCAT supple CTA RR abd distended, no edema non-focal Merna Serrano MD Feb 29, 2020 22:19
[2020-02-29] MEDS: Epoetin Alfa-EPBX(ESRD on dialysis)3000 units/ml vial SUBQ SCH (22:42)
[2020-03-01] VITALS: BP 154/67
--- NOTE | 2020-03-01 | Progress Note ---
DATE: 02/25/2020 CARDIOLOGY PROGRESS NOTE SUBJECTIVE: The patient is status post hemodialysis with ultrafiltration yesterday. He was transfused. He is scheduled for paracentesis today. Monitored rhythm sinus with rare atrial ectopy. OBJECTIVE: VITAL SIGNS: Afebrile, blood pressure 121/57, pulse 78, respirations 19. LUNGS: Diminished breath sounds. HEART: Regular rhythm and rate. Normal S1, S2 with a 1/6 systolic murmur at lower left sternal border. ABDOMEN: Soft, slightly distended and ascitic. EXTREMITIES: Trace edema. LABORATORY DATA: Sodium 139, potassium 3.8, bicarb 27, BUN 57, creatinine 10.2. Albumin 3.1. White count is 5.4, hemoglobin 6.7. IMPRESSION: 1. Ascites. 2. Volume overload. 3. End-stage renal disease. 4. Acute on chronic diastolic congestive heart failure. 5. Myocardial ischemia precipitated by severe anemia. 6. Anemia due to GI blood loss. PLAN: 1. Paracentesis. 2. Packed red blood cell transfusion. 3. Outpatient compliance. 4. GI workup in progress. 5. Hold anti-platelet therapy. 6. Titrate antihypertensive regimen. 7. Continue beta-blockade. Cristofer Alegre M.D. DR: Kylie JOB#: [id number] CC: ERIK
--- NOTE | 2020-03-01 00:15 | Consultation ---
DATE OF CONSULTATION: 02/24/2020 CARDIOLOGY CONSULTATION CONSULTING PHYSICIAN: Cristofer Alegre MD. REFERRING PHYSICIAN: Sahil Dixon MD. REASON: Hypertensive urgency in the setting of GI bleeding, nausea and vomiting. HISTORY OF PRESENT ILLNESS: This male with end-stage renal disease has missed a few dialysis sessions. He presented with nausea, vomiting. His blood pressure was over 190 systolic. He denied chest pain, but has felt distention in his abdomen and difficulty breathing. ALLERGIES: None. MEDICATIONS: Reviewed. FAMILY HISTORY: Noncontributory. SOCIAL HISTORY: Negative for smoking, alcohol, or substance abuse. PAST MEDICAL HISTORY: Includes type 2 diabetes mellitus, hypertension, and end-stage renal disease. PHYSICAL EXAMINATION: VITAL SIGNS: Blood pressure 193/82, heart rate 78, respirations 20. LUNGS: Diminished breath sounds. Few rales. NECK: Jugular venous pressure elevated. CARDIAC: Regular rhythm rate. Normal S1, S2. A 1/6 systolic murmur at lower left sternal border. ABDOMEN: Distended. Ascitic with fluid shift. EXTREMITIES: With trace edema. Palpable bruit over the left upper extremity AV fistula. LABORATORY AND DIAGNOSTIC DATA: EKG with sinus rhythm, nonspecific ST-T wave changes. Chest x-ray reveals no acute process. Sodium 137, potassium 5, bicarb 15, BUN 135, creatinine 19.5. Troponin 0.026. Lipase 773. White count 7.9 and hemoglobin 6. IMPRESSION: 1. Hypertensive urgency. 2. Uremia. 3. Possible pancreatitis. 4. End-stage renal disease. 5. Acute myocardial ischemia. 6. Metabolic acidosis. 7. Ascites. 8. Condition serious. 9. Prognosis guarded. PLAN: 1. Cardiac monitoring. 2. No anticoagulation. 3. Monitor for signs of bleeding. 4. NPO. 5. Emergent hemodialysis with ultrafiltration. 6. Transfuse to hemoglobin above 7 g. 7. Antihypertensive therapy to be uptitrated with the use of beta-hortencia and calcium channel hortencia as needed. Emily Mullen JOB#: [id number] CC:
--- NOTE | 2020-03-01 00:15 | Progress Note ---
DATE: 02/26/2020 CARDIOLOGY PROGRESS NOTE SUBJECTIVE: The patient still has nausea and vomiting. No melena or bright red blood per rectum. He still has some coffee-ground material. He has received packed red blood cell transfusion. He is scheduled today for hemodialysis. OBJECTIVE: VITAL SIGNS: Blood pressure 152/64, heart rate 65, respiratory rate 20, afebrile. LUNGS: Diminished breath sounds. CARDIAC: Regular rhythm and rate. Normal S1, S2 with a fourth heart sound. ABDOMEN: Slightly distended with ascitic fluid noted. EXTREMITIES: With 1+ edema. LABORATORY DATA: White count is 5.1, hemoglobin 7.4. Sodium is 145, potassium 3.8, bicarb 22, BUN 95, creatinine 13.7. TSH 9.3. IMPRESSION: 1. GI bleeding. 2. Pancreatitis. 3. Severe anemia. 4. Myocardial ischemia. 5. Ascites. 6. End-stage renal disease. 7. Hypothyroidism. 8. Condition serious. Prognosis guarded. PLAN: 1. Hemodialysis with ultrafiltration. 2. Paracentesis. 3. Plan thyroid replacement. 4. Transfuse to hemoglobin above 8 g. 5. Await iron panel. 6. GI workup in progress. 7. No antiplatelet therapy. Emily Mullen JOB#: [id number] CC:
--- NOTE | 2020-03-01 02:00 | Progress Note ---
DATE: 02/29/2020 CARDIOLOGY PROGRESS NOTE SUBJECTIVE: Continues to have drop in hemoglobin despite transfusion. Complains of shortness of breath. Still with nausea no vomiting. OBJECTIVE: VITAL SIGNS: Blood pressure 122/51, pulse 76, respirations 20, and afebrile. LUNGS: Diminished breath sounds. HEART: Regular rhythm and rate. Normal S1, S2 with no new murmur. ABDOMEN: Less distended with no palpable ascites. EXTREMITIES: With trace edema. LABORATORY DATA: Hemoglobin 7.4. BUN 36, creatinine 7.1. IMPRESSION: 1. Uremia improving. 2. Remains hypothyroid. 3. Acute on chronic diastolic congestive heart failure. 4. Hypertensive heart disease. 5. Cirrhosis, status post gastrointestinal bleed. 6. Gastritis with no active bleeding now. PLAN: Transfuse for hemoglobin less than 8. Thyroid replacement. Outpatient therapy for hepatitis C. May need to hold beta-hortencia during that therapy due to potential for bradyarrhythmias. Outpatient colonoscopy. Cristofer Alegre M.D. DR: HANG JOB#: [id number] CC:
[2020-03-01 04:00] VITALS: BP 111/53
[2020-03-01] MEDS: HydrALAZINE 50mg tab ORAL SCH ×2 (06:00→14:59)
[2020-03-01] MEDS: NovoLOG Insulin Flexpen SUBQ SCH ×3 (06:20→16:30)
[2020-03-01] MEDS: NIFEdipine 10mg cap ORAL SCH ×2 (06:24→14:59)
[2020-03-01 08:00] VITALS: BP 124/62
[2020-03-01] MEDS: Sodium Citrate 30ml ORAL SCH ×3 (08:35→16:49)
[2020-03-01] MEDS: Tamsulosin 0.4mg cap ORAL SCH (08:35)
[2020-03-01] MEDS: Carvedilol 12.5mg tab ORAL SCH (08:36)
[2020-03-01] MEDS: Furosemide 80mg tab ORAL SCH (08:36)
--- NOTE | 2020-03-01 10:08 | General Progress Note ---
Assessment/Plan Status: stable Assessment/Plan: 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 - Hepatitis C antibody (+) - Ascites - s/p 9.6 liter paracentesis - Thrombocytopenia - ESRD / HD - N/V, Diarrhea - small volume Hematemesis, BRBPR - Anemia Recommendations - RBC transfusion PRN - IV Fe - Paracentesis - done - IV PPI - Cirrhosis serologic w/u - check AFP -s/p EGD -abd us - stool cultures / C Diff - Outpatient HCV eradication - will consider colonoscopy at later date Subjective Allergies: Coded Allergies: No Known Allergies (Unverified , 01/17/17) Objective Last 24 Hour Vital Signs Date Time Temp Pulse Resp B/P (MAP) Pulse Ox O2 Delivery O2 Flow Rate FiO2 03/01/20 08:36 78 124/62 03/01/20 08:00 77 03/01/20 08:00 98.6 78 18 124/62 (82) 98 03/01/20 06:24 76 111/53 03/01/20 06:00 111/53 03/01/20 04:00 98.2 72 18 111/53 (72) 100 03/01/20 04:00 76 03/01/20 00:00 79 03/01/20 00:00 98.8 87 18 154/67 (96) 98 02/29/20 22:42 87 153/63 02/29/20 22:41 87 153/63 02/29/20 22:41 153/63 02/29/20 21:00 Room Air 02/29/20 20:00 78 02/29/20 20:00 98.0 82 18 150/53 (85) 98 02/29/20 16:00 98.0 80 20 153/69 (97) 100 02/29/20 15:32 68 02/29/20 14:00 76 122/51 02/29/20 14:00 122/51 02/29/20 12:00 98.4 76 20 122/51 (74) 100 02/29/20 11:33 76 Intake and Output 02/29/20 03/01/20 19:00 07:00 Intake Total 600 ml 240 ml Output Total 1500 ml Balance 600 ml -1260 ml Intake Oral 600 ml 240 ml Output Urine Total 500 ml Hemodialysis UF 1000 ml # Voids 3 4 Height (Feet): 6 Height (Inches): 2.00 Weight (Pounds): 197 General Appearance: no apparent distress EENT: normal ENT inspection Neck: supple Cardiovascular: normal rate Respiratory/Chest: decreased breath sounds Abdomen: normal bowel sounds, non tender, soft Teddy Ann MD Mar 01, 2020 10:08
--- NOTE | 2020-03-01 11:06 | Nephrology Progress Note ---
Assessment/Plan Problem List: (1) Missed dialysis (2) End-stage kidney disease (3) HTN (hypertension) (4) GIB (gastrointestinal bleeding) (5) Anemia Plan continue with HD 02/24 and 02/25, GI evaluating, 02/27 refused HD, had HD 02/28 feels well tolerates anemia , on epogen, appetite good, history of unreliable attendance outpatient HD per prior midwife and birth center owner Dr Oseguera Subjective Constitutional: Reports: no symptoms HEENT: Reports: no symptoms Genitourinary: Reports: no symptoms Neurologic/Psychiatric: Reports: no symptoms Objective Objective Last 24 Hour Vital Signs Date Time Temp Pulse Resp B/P (MAP) Pulse Ox O2 Delivery O2 Flow Rate FiO2 03/01/20 08:36 78 124/62 03/01/20 08:00 77 03/01/20 08:00 98.6 78 18 124/62 (82) 98 03/01/20 06:24 76 111/53 03/01/20 06:00 111/53 03/01/20 04:00 98.2 72 18 111/53 (72) 100 03/01/20 04:00 76 03/01/20 00:00 79 03/01/20 00:00 98.8 87 18 154/67 (96) 98 02/29/20 22:42 87 153/63 02/29/20 22:41 87 153/63 02/29/20 22:41 153/63 02/29/20 21:00 Room Air 02/29/20 20:00 78 02/29/20 20:00 98.0 82 18 150/53 (85) 98 02/29/20 16:00 98.0 80 20 153/69 (97) 100 02/29/20 15:32 68 02/29/20 14:00 76 122/51 02/29/20 14:00 122/51 02/29/20 12:00 98.4 76 20 122/51 (74) 100 02/29/20 11:33 76 Intake and Output 02/29/20 03/01/20 19:00 07:00 Intake Total 600 ml 240 ml Output Total 1500 ml Balance 600 ml -1260 ml Intake Oral 600 ml 240 ml Output Urine Total 500 ml Hemodialysis UF 1000 ml # Voids 3 4 Height (Feet): 6 Height (Inches): 2.00 Weight (Pounds): 197 General Appearance: no apparent distress EENT: normal ENT inspection Cardiovascular: regular rhythm Respiratory/Chest: lungs clear Abdomen: non tender Extremities: no edema 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
--- NOTE | 2020-03-01 11:53 | General Progress Note ---
Assessment/Plan Problem List: (1) Anemia ICD Codes: D64.9 - Anemia, unspecified SNOMED: 578827560 (2) Renal failure ICD Codes: N19 - Unspecified kidney failure SNOMED: 68809353 (3) GIB (gastrointestinal bleeding) ICD Codes: K92.2 - Gastrointestinal hemorrhage, unspecified SNOMED: 69737707 (4) HTN (hypertension) ICD Codes: I10 - Essential (primary) hypertension SNOMED: 39664067 Status: stable Assessment/Plan: HD per renal titrate bp rx transfuse prn thyroid replacement antiemetics as needed PPI rx monitor for bleeding GI follow up. hep c rx as outpt dc planning if ok with all repeat cbc Subjective ROS Limited/Unobtainable: No Constitutional: Reports: malaise, weakness HEENT: Reports: no symptoms Cardiovascular: Reports: no symptoms Respiratory: Reports: no symptoms Gastrointestinal/Abdominal: Reports: blood in stool Genitourinary: Reports: no symptoms Neurologic/Psychiatric: Reports: no symptoms Endocrine: Reports: no symptoms Hematologic/Lymphatic: Reports: anemia Allergies: Coded Allergies: No Known Allergies (Unverified , 01/17/17) All Systems: reviewed and negative except above Subjective s/p transfusion. no new complaints. wants to go home. denies any bleeding. no fevers or chills. no sob. Objective Last 24 Hour Vital Signs Date Time Temp Pulse Resp B/P (MAP) Pulse Ox O2 Delivery O2 Flow Rate FiO2 03/01/20 08:36 78 124/62 03/01/20 08:00 77 03/01/20 08:00 98.6 78 18 124/62 (82) 98 03/01/20 06:24 76 111/53 03/01/20 06:00 111/53 03/01/20 04:00 98.2 72 18 111/53 (72) 100 03/01/20 04:00 76 03/01/20 00:00 79 03/01/20 00:00 98.8 87 18 154/67 (96) 98 02/29/20 22:42 87 153/63 02/29/20 22:41 87 153/63 02/29/20 22:41 153/63 02/29/20 21:00 Room Air 02/29/20 20:00 78 02/29/20 20:00 98.0 82 18 150/53 (85) 98 02/29/20 16:00 98.0 80 20 153/69 (97) 100 02/29/20 15:32 68 02/29/20 14:00 76 122/51 02/29/20 14:00 122/51 02/29/20 12:00 98.4 76 20 122/51 (74) 100 Intake and Output 02/29/20 03/01/20 19:00 07:00 Intake Total 600 ml 240 ml Output Total 1500 ml Balance 600 ml -1260 ml Intake Oral 600 ml 240 ml Output Urine Total 500 ml Hemodialysis UF 1000 ml # Voids 3 4 Height (Feet): 6 Height (Inches): 2.00 Weight (Pounds): 197 Objective General Appearance: WD/WN, alert Neck: supple Cardiovascular: regular rhythm Respiratory/Chest: lungs clear Abdomen: normal bowel sounds, non tender, soft, no organomegaly Edema: no edema noted Arm (L), no edema noted Arm (R), no edema noted Leg (L), no edema noted Leg (R), no edema noted Pedal (L), no edema noted Pedal (R), no edema noted Generalized 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
[2020-03-01 12:00] VITALS: BP 146/66
[2020-03-01] MEDS: Imdur 30mg tab ORAL SCH (12:14)
[2020-03-01] MEDS: Benazepril 10mg tab ORAL SCH (12:14)
[2020-03-01 19:40] VITALS: BP 134/72
--- NOTE | 2020-03-02 03:00 | Progress Note ---
DATE: 03/01/2020 CARDIOLOGY PROGRESS NOTE SUBJECTIVE: The patient is status post packed red blood cell transfusion. No new bleeding noted. He denies chest pain or shortness of breath. OBJECTIVE: VITAL SIGNS: Afebrile, blood pressure 124/62, pulse 78, and respirations 18. LUNGS: Clear. CARDIAC: Regular rhythm and rate. Normal S1 and S2. A 1/6 systolic apical murmur. ABDOMEN: Soft. EXTREMITIES: No edema. LABORATORY DATA: White count 6.7 and hemoglobin 7.4 pre-transfusion. IMPRESSION: 1. Ascites, status post paracentesis. 2. Gastrointestinal bleed due to gastritis. 3. Hypertensive heart disease with controlled blood pressure. 4. Uremia with end-stage renal disease. PLAN: 1. Outpatient treatment for hepatitis C to follow. 2. Reassess beta-hortencia dosing during that therapy. 3. Monitor blood count. 4. Thyroid replacement. 5. May need to be euthyroid before initiating antihepatitis C regimen. 6. Outpatient colonoscopy to follow. Cristofer Alegre M.D. DR: GILSON JOB#: [id number] CC:
--- NOTE | 2020-03-03 15:07 | Discharge Summary ---
Discharge Summary Discharge Summary _ DATE OF ADMISSION: 02/24/2020 DATE OF DISCHARGE: 03/01/2020 DISCHARGED BY: Dr. Dixon REASON FOR ADMISSION: 69 years old male with past medical history of end-stage renal disease, on hemodialysis, hypertension, diabetes mellitus, BPH, presented with complaints of generalized weakness fatigue and shortness of breath. Patient apparently did not go to dialysis for nearly 2 weeks. Patient admitted to [facility] and had episodes of hematemesis in emergency department. Upon evaluation blood pressure was elevated 193/82. Laboratory work-up revealed no leukocytosis, hemoglobin 6 , hematocrit 18.5 , platelet count 108, stable electrolytes. BUN 135, creatinine 19.5, consistent with end-stage renal disease and nonadherence to dialysis . Troponin 0.026. EKG revealed sinus rhythm no acute ischemic changes. Albumin 3.9. Stable LFT and lipase. Chest x-ray revealed no acute cardiopulmonary pathology. Patient admitted for urgent hemodialysis and anemia. CONSULTANTS: telecommunications engineer Dr. Alegre GI specialist Dr. Serrano psych therapist Dr. Pizarro HOSPITAL COURSE: Patient admitted to telemetry floor. Patient received total of 4 units of packed red blood cells transfusion. Stool for occult blood was positive. GI specialist followed. Urgent hemodialysis was arranged as per psych therapist recommendation. Patient initially received hemodialysis straight day to day. Volumes and renal parameters were closely monitored. Electrolytes corrected as needed. Patient was encouraged compliance with dialysis. Patient undergone ultrasound-guided paracentesis yielding 9.6 L of ascitic fluid. Cytology of ascitic fluid revealed no malignant cells. Stool culture was negative. Stool for C. difficile was negative. Stool for occult blood was positive. Patient undergone EGD with biopsy, which revealed erosive gastritis, status post biopsy. Diet was resumed. Antiemetic were on board as needed. Diet tolerance was closely monitored. Patient was able to tolerate diet. Patient started on proton pump inhibitor. Biopsy of gastric antrum revealed moderate chronic gastritis with focal mild activity and reactive changes. No H. pylori was identified. Hepatitis panel revealed evidence of hepatitis C. Recommended outpatient treatment for hepatitis C. Also recommended outpatient colonoscopy. Ammonia within normal limits. Epogen continued. Prior to discharge hemoglobin 7.4 ,hematocrit 22.5. LFT remained stable. Venous duplex bilateral lower extremity revealed no evidence of acute DVT. DVT prophylaxis provided. Pulse oximetry remained stable on room air. Echocardiogram demonstrated preserved ejection fraction 55 to 60%. No evidence of wall motion abnormality. No evidence of left ventricular hypertrophy. Right ventricular systolic pressure of 54 consistent with a moderate pulmonary hypertension. Beta-blockade , statin and Imdur continued. continued. Blood pressure was closely monitored and remained stable with current regimen. Uremia was improving. Symptomatic treatment provided. Blood sugar was managed with Glipizide and sliding scale of insulin. Patient clinically stabilized and was ready for discharge home. FINAL DIAGNOSES: Anemia of acute blood loss GI bleeding , secondary to gastritis Uremia with end-stage renal disease , secondary to missed dialysis Ascites , status post paracentesis End-stage renal disease, requiring hemodialysis Hypertensive heart disease Hepatitis C DISCHARGE MEDICATIONS: See Medication Reconciliation list. DISCHARGE INSTRUCTIONS: Patient was discharged home . Follow-up with a primary care provider in 1 week. Follow-up with outpatient hemodialysis schedule. Recommended outpatient treatment for hepatitis C and outpatient colonoscopy. I have been assigned to dictate discharge summary for this account. I was not involved in the patient's management. Marilynn Murdock NP Mar 03, 2020 15:07
== END 2020-03-01 19:40 | disposition home or self-care (01) | DRG 811 ==
LOC: EMR 18:14 → 2E 19:00 → EDBEDREQ 02-25 11:47 → 2E 02-25 12:23
PROC: 30233N1 Transfusion of Nonautologous Red Blood Cells into Peripheral Vein, Percutaneous Approach (ICD-10-PCS; principal; 2020-02-24)
PROC: 5A1D70Z Performance of Urinary Filtration, Intermittent, Less than 6 Hours Per Day (ICD-10-PCS; 2020-02-25)
PROC: 0W9G3ZZ Drainage of Peritoneal Cavity, Percutaneous Approach (ICD-10-PCS; 2020-02-27)
PROC: 0DB68ZX Excision of Stomach, Via Natural or Artificial Opening Endoscopic, Diagnostic (ICD-10-PCS; 2020-02-28)
PROC: 0DB78ZX Excision of Stomach, Pylorus, Via Natural or Artificial Opening Endoscopic, Diagnostic (ICD-10-PCS; 2020-02-28)
DX: D62 Acute posthemorrhagic anemia (principal); N18.6 End stage renal disease; K29.71 Gastritis, unspecified, with bleeding; I50.33 Acute on chronic diastolic (congestive) heart failure; K85.90 Acute pancreatitis without necrosis or infection, unspecified; K92.0 Hematemesis; K92.2 Gastrointestinal hemorrhage, unspecified; R18.8 Other ascites; I13.2 Hypertensive heart and chronic kidney disease with heart failure and with stage 5 chronic kidney disease, or end stage renal disease; E11.22 Type 2 diabetes mellitus with diabetic chronic kidney disease; N40.0 Benign prostatic hyperplasia without lower urinary tract symptoms; Z91.15 Patient's noncompliance with renal dialysis; B19.20 Unspecified viral hepatitis C without hepatic coma; I16.0 Hypertensive urgency; D69.6 Thrombocytopenia, unspecified; I27.20 Pulmonary hypertension, unspecified; Z99.2 Dependence on renal dialysis; K74.60 Unspecified cirrhosis of liver; E87.79 Other fluid overload; I51.3 Intracardiac thrombosis, not elsewhere classified
CPT/HCPCS: 36415; 36430; 71045; 76942; 80048; 80053; 82105; 82140; 82270; 82728; 82962; 83540; 83550; 83690; 84100; 84443; 84484; 85007; 85025; 85610; 85730; 86039; 86225; 86235; 86706; 86803; 86850; 86900; 86901; 86920; 87045; 87081; 87324; 93005; 93306; 93970; 94003; 94150; 96374; 96375; 99285; J1815; J2250; J2405